=== PATIENT | female | born 1945 | race Caucasian/White ===

== ENCOUNTER 2018-06-07 16:40 | Inpatient (IN) ==
--- NOTE | 2018-06-07 18:11 | Internal Med History&Physical ---
Date of Encounter: 06/07/18 Time of Encounter: 12:00 Internal Medicine - H&P: HPI History of present illness: Ms. Alva is a 72 year old female who was seen in the office earlier today by Orthopedic Surgery. Patient has histoyr of a mucous cyst in right small finger. she had this drained 3 weeks ago and thick clear discharge came from the cyst. Afterwords there was no appearance of infection. She had minor trauma 3 days ago scraping her arm on a cabinet. Two days ago patient states she went to [facility] and she was treated and discharged home on clindamycin. Her primary care saw the patient's wound and referred her to Orthopedic Surgeon Dr. Villar. Patient underwent I&D in office and was sent here as a direct admit as there are concerns for septic arthritis of distal interphalangeal joint and to receive IV antibiotics. Patient admits to severe right hand pain. She denies fevers/chills, nausea, vomiting. No other areas of similar presentation. Past Med Surg Social Fam HX - Past Medical History Medical history: arthritis, CHF, coronary artery disease, CVA, diabetes, fibromyalgia, GERD, hyperlipidemia, hypertension, myocardial infarction, peripheral artery disease, TIA, other Additional medical history: Anemia Psychiatric history: anxiety, depression - Past Surgical History Surgical History: breast surgery, coronary bypass (CABG), orthopedic, other Additional surgical history: Back surgery - Social History Smoking Status: Never smoker Smokeless Tobacco Status: No Alcohol use: none Drug use: none - Family History Father Hx Family Cardiac Disorders: Yes Hx Family Cancer: Yes (Kidney Cancer) Mother Hx Family Cardiac Disorders: Yes Hx Family Cancer: Yes Internal Medicine - H&P: Meds Duloxetine HCl [Cymbalta] 60 mg PO DAILY 11/28/15 [History] Furosemide [Lasix] 40 mg PO DAILY 11/28/15 [History] Metformin HCl [Glucophage] 1,000 mg PO DAILY 11/28/15 [History] Ropinirole HCl [Requip] 2 mg PO DAILY 11/28/15 [History] Cholecalciferol (D-3) [Vitamin D] 5,000 unit PO DAILY 06/23/16 [History] Liraglutide [Victoza 3-Johnny] 1.2 mg SQ DAILY 06/23/16 [History] Potassium Chloride [K-Tab ER] 20 meq PO BID 06/23/16 [History] Atorvastatin Calcium [Lipitor] 20 mg PO DAILY 08/25/17 [History] Amitriptyline [Elavil] 40 mg PO DAILY 09/09/17 [History] Metoprolol [Lopressor] 25 mg PO DAILY 09/09/17 [History] Ondansetron [Zofran] 8 mg PO DIANN PRN 09/09/17 [History] Pen Needle, Diabetic [Pen [place]] 1 each MC TID #4 dis.needle 11/18/17 [Rx] Cyanocobalamin (B-12) [Vitamin B12] 1,000 mcg IM Q3W #6 mls 03/23/18 [Rx] Clindamycin HCl 450 mg PO TID 10 Days #90 capsule 06/06/18 [Rx] Allergy/AdvReac Type Severity Reaction Status Date / Time Penicillins Allergy Hives Verified 04/22/18 13:52 IV CONTRAST AdvReac Hives Uncoded 04/22/18 13:52 All Systems PM: A 10-system review of systems was performed and is negative for pertinent findings except as documented above in the HPI. - Constitutional General appearance: Present: A&O X 3 Exam: n - Head Head exam: Present: atraumatic, normocephalic - Eye Eye exam: Present: PERRL, conjuntiva pink, sclera anicteric Pupils: Present: PERRL - Neck Neck exam general surgery: Present: supple, trachea midline. Absent: lymphadenopathy - Respiratory Respiratory exam: Present: CTAB. Absent: accessory muscle use, rales, rhonchi, wheezes - Cardiovascular Cardiovascular exam: Present: RRR, +S1, +S2. Absent: diastolic murmur, gallop, rubs, systolic murmur - GI/Abdominal GI/Abdominal exam: Present: normal bowel sounds, soft, no peritoneal signs. Absent: distended, tenderness - Extremities Exam Extremities exam: Present: warm, radial pulses palpable and symmetrical. Absent: calf tenderness, cyanotic, pedal edema Additional comments: Right hand exam is limited bypatient. She has severe pain and so limited the touching of the hand. It is in clean dressing. No signs of bruising, discharge, or bleeding. - Neurological Exam Neurological exam: Present: CN II-XII intact, oriented X3, no focal deficits. Absent: pronater drift, facial droop, speech deficit - Skin Skin exam: Present: dry, intact Internal Med - H&P Results - Labs CBC & Chem 7: 06/07/18 18:32 06/07/18 18:32 - Assessment and plan (1) Finger infection Current Visit: Yes Status: Acute Assessment and plan: s/p I&D outpatient office, admitted her for IV antibiotics. 0 SIRS criteria on admission Anticipation that he will need 4-6 abx. ID consult Continue Cefepime. Continue Vanc (2) CHF (congestive heart failure) Current Visit: Yes Status: Acute Assessment and plan: No acute issues, continue home medications once reconsiled Qualifiers: Heart failure type: diastolic Heart failure chronicity: chronic Qualified Code(s): I50.32 - Chronic diastolic (congestive) heart failure (3) Hx of CABG Current Visit: Yes Status: Acute (4) Coronary artery disease Current Visit: Yes Status: Acute Qualifiers: Coronary Disease-Associated Artery/Lesion type: unspecified vessel or lesion type [place] vs. transplanted heart: [place] heart Associated angina: angina presence unspecified Qualified Code(s): I25.10 - Atherosclerotic heart disease of [place] coronary artery without angina pectoris (5) Anemia Current Visit: No Status: Acute Qualifiers: Anemia type: B12 deficiency Vitamin B12 deficiency anemia type: other B12 deficiency Qualified Code(s): D51.8 - Other vitamin B12 deficiency anemias (6) History of CVA (cerebrovascular accident) Current Visit: Yes Status: Acute (7) Diabetes Current Visit: Yes Status: Acute Qualifiers: Diabetes mellitus type: type 2 Diabetes mellitus usp insulin use: un specified usp insulin use status Diabetes mellitus complication status: with kidney complications Diabetes mellitus complication detail: with chronic kidney disease Chronic kidney disease stage: unspecified stage Qualified Code(s): E11.22 - Type 2 diabetes mellitus with diabetic chronic kidney disease (8) History of [place] (myocardial infarction) Current Visit: Yes Status: Acute (9) Peripheral artery disease Current Visit: Yes Status: Acute - Time Spent With Patient Total time spent is greater than 50% in coordination of care (as documented) at patient's floor/unit and/or counseling patient:
[2018-06-07] MEDS ORDERED: Naloxone 0.4 MG/ML INJ IVP PRN (18:13)
[2018-06-07] MEDS ORDERED: Ondansetron 4 MG/2 ML VIAL IVP PRN (18:20)
[2018-06-07] MEDS ORDERED: traMADol 50 MG TABLET PO PRN (18:29)
[2018-06-07] MEDS ORDERED: Acetaminophen 325 MG TABLET PO PRN (18:29)
--- NOTE | 2018-06-07 18:38 | Orthopedic Consult Note ---
Date of Encounter: 06/07/18 Time of Encounter: 18:35 Assessment and Plan (1) Finger infection Current Visit: Yes Status: Acute I did discuss the diagnosis in great detail with the patient. She has septic arthritis of the right small finger distal interphalangeal joint and underwent incision, drainage, irrigation, and debridement of the right small finger distal interphalangeal joint in the office earlier today. My recommendation is IV antibiotics beginning with vancomycin and Zosyn until cultures delineate. I anticipate a consult to the infectious disease team to help assist in antibiotic management. I anticipate that she will need 4-6 weeks of IV antibiotics. I will follow the patient clinically with you. She may require a second look I&D depending on the clinical scenario. I did discuss with the patient the risks of persistent infection, bony destructive changes, the need for multiple debridements, as well as the risk of loss of the digit. History of Present Illness HPI: Ms. Alva is a 72 year old female who was seen in the office earlier today. She has a long history of a mucous cyst of the right small finger. She has had drainage from this in the past the most recent of which was 3 weeks ago when thick clear discharge him from the cyst. At that point there is no concern for redness or infection. She did scrape the dorsal aspect of the right small finger on a metal cabinet 3 days ago. She was seen in the emergency Department and placed on clindamycin. At that point she had redness spreading along the ulnar aspect of the hand. The clindamycin did improve the redness in the hand however she had significant redness at the tip of the digit which has not improved and the pain has significantly worsened. She has no recent or prior trauma. No numbness, tingling, or any other associated signs or symptoms. The pain is sharp and achy in nature and worse with use and movement and better with rest. No other modifying factors. She denies feelings of illness. In the of fice she underwent incision, drainage, irrigation, and debridement of the right small finger after the diagnosis of an infected right small finger mucous cyst and septic arthritis of the distal interphalangeal joint was made. Cultures were obtained. She is now admitted to the hospitalist for IV antibiotics. Past Med Surg Social Fam HX - Past Medical History Medical history: arthritis, CHF, coronary artery disease, CVA, diabetes, fibromyalgia, GERD, hyperlipidemia, hypertension, myocardial infarction, peripheral artery disease, TIA, other Additional medical history: Anemia Psychiatric history: anxiety, depression - Past Surgical History Surgical History: breast surgery, coronary bypass (CABG), orthopedic, other Additional surgical history: Back surgery - Social History Smoking Status: Never smoker Smokeless Tobacco Status: No Alcohol use: none Drug use: none - Family History Father Hx Family Cardiac Disorders: Yes Hx Family Cancer: Yes (Kidney Cancer) Mother Hx Family Cardiac Disorders: Yes Hx Family Cancer: Yes Medications and Allergies Duloxetine HCl [Cymbalta] 60 mg PO DAILY 11/28/15 [History] Furosemide [Lasix] 40 mg PO DAILY 11/28/15 [History] Metformin HCl [Glucophage] 1,000 mg PO DAILY 11/28/15 [History] Ropinirole HCl [Requip] 2 mg PO DAILY 11/28/15 [History] Cholecalciferol (D-3) [Vitamin D] 5,000 unit PO DAILY 06/23/16 [History] Liraglutide [Victoza 3-Johnny] 1.2 mg SQ DAILY 06/23/16 [History] Potassium Chloride [K-Tab ER] 20 meq PO BID 06/23/16 [History] Atorvastatin Calcium [Lipitor] 20 mg PO DAILY 08/25/17 [History] Amitriptyline [Elavil] 40 mg PO DAILY 09/09/17 [History] Metoprolol [Lopressor] 25 mg PO DAILY 09/09/17 [History] Ondansetron [Zofran] 8 mg PO DIANN PRN 09/09/17 [History] Pen Needle, Diabetic [Pen [place]] 1 each MC TID #4 dis.needle 11/18/17 [Rx] Cyanocobalamin (B-12) [Vitamin B12] 1,000 mcg IM Q3W #6 mls 03/23/18 [Rx] Clindamycin HCl 450 mg PO TID 10 Days #90 capsule 06/06/18 [Rx] Allergy/AdvReac Type Severity Reaction Status Date / Time Penicillins Allergy Hives Verified 04/22/18 13:52 IV CONTRAST AdvReac Hives Uncoded 04/22/18 13:52 All Systems Reviewed: Constitutional and musculoskeletal systems were reviewed and are negative unless otherwise stated in history of present illness. Physical Exam - Constitutional Vitals: CONSTITUTIONAL -Vitals reviewed -The patient is well developed, well nourished, well groomed PSYCHIATRIC -Fully alert and oriented -Pleasant mood RIGHT UPPER EXTREMITY Inspection shows that the skin and the soft tissue envelope are intact. There is a mucous cyst along the dorsal aspect of the small finger with significant surrounding redness centered along the distal interphalangeal joint with exquisite tenderness particularly dorsally. Moderate generalized swelling of the small finger and pain with any motion of the digit itself but worse over the distal interphalangeal joint. No streaking up the arm is noted. She can grossly flex and extend the digits with limitation due to pain of the right small finger. She is able across the index and long fingers, extend the thumb, and make an okay sign. The fingertips are all grossly sensate and well- perfused, and the radial artery pulse is 2+. Diagnostic Imaging: I did personally review and interpret x-rays of the right small finger which demonstrates osteopenia but no fractures or significant focal bony resorption of the small finger distal interphalangeal joint region. Results - Labs Labs: All other labs normal. Consult Discharge Plan - Plan Referrals: NONE,PCP [Primary Care Provider] -
[2018-06-07 18:51] LABS: Basophils % 0.7 %; Eosinophils % 0.7 %; Hematocrit 30.2 % (35.3-44.9); Hemoglobin 10.1 g/dL (11.5-15.4); Immature Granulocytes % 0.2 % (0-4); Lymphocytes # 2.7 K/mcL (0.6-4.6); Lymphocytes % 44.9 %; Mean Corpuscular HGB Conc 33.4 g/dL (31.6-35.5); Mean Corpuscular Hemoglobin 34.8 pg (28.0-33.3); Mean Corpuscular Volume 104.1 fL (83.0-100.0); Mean Platelet Volume 10.2 fL (9.4-12.4); Monocytes # 0.5 K/mcL (0.0-1.3); Monocytes % 8.4 %; Neutrophils # 2.7 K/mcL (1.6-8.9); Platelet Count 346 K/mcL (140-400); Red Cell Distribution Width 14.2 % (11.5-14.5); Segmented Neutrophils % 45.1 %
[2018-06-07] MEDS ORDERED: *HR* FentaNYL (PF) 100 MCG/2 ML VIAL IVP STA (18:53)
[2018-06-07] MEDS ORDERED: *HR* Dextrose 50 % in Water (Syg) 50 ML SYRINGE IVP PRN (19:05)
[2018-06-07] MEDS ORDERED: D5% in Water 1,000 ML IVC PRN (19:05)
[2018-06-07] MEDS ORDERED: Dextrose Gel 15 GM/37.5 ML TUBE PO PRN ×2 (19:05)
[2018-06-07] MEDS: OXYCODONE Oral CONC 10 MG/0.5 ML ORAL.SYG SL PRN (19:09)
[2018-06-07 19:19] LABS: BUN/Creatinine Ratio 41 (6-26); Blood Urea Nitrogen 15 mg/dL (8-23); C-Reactive Protein 30 mg/L (Less than 10); Calcium 9.4 mg/dL (8.6-10.3); Carbon Dioxide 26 mEq/L (23-29); Chloride 103 mEq/L (98-107); Glucose 114 mg/dL (70-105); Osmolality,Calculated 290 (280-300); Potassium 3.5 mEq/L (3.5-5.1); Sodium 139 mEq/L (136-145); eGFR For Non-African Americans > 60 (> 60)
[2018-06-07] MEDS ORDERED: Insulin LISPRO 300 UNITS/3 ML VIAL SQ SCH (21:00)
[2018-06-07] MEDS ORDERED: *HR* FentaNYL (PF) 100 MCG/2 ML VIAL IVP PRN (22:43)
[2018-06-08] MEDS: OXYCODONE Oral CONC 10 MG/0.5 ML ORAL.SYG SL PRN ×2 (01:38→09:18)
[2018-06-08 05:38] LABS: BUN/Creatinine Ratio 39 (6-26); Blood Urea Nitrogen 15 mg/dL (8-23); Carbon Dioxide 26 mEq/L (23-29); Chloride 106 mEq/L (98-107); Glucose 156 mg/dL (70-105); Osmolality,Calculated 292 (280-300); Sodium 139 mEq/L (136-145); eGFR For Non-African Americans > 60 (> 60)
[2018-06-08 07:08] LABS: Basophils % 0.7 %; Eosinophils # 0.1 K/mcL (0.0-0.6); Eosinophils % 1.6 %; Hematocrit 28.3 % (35.3-44.9); Hemoglobin 9.5 g/dL (11.5-15.4); Immature Granulocytes % 0.5 % (0-4); Lymphocytes # 1.8 K/mcL (0.6-4.6); Lymphocytes % 42.5 %; Mean Corpuscular HGB Conc 33.6 g/dL (31.6-35.5); Mean Corpuscular Hemoglobin 34.3 pg (28.0-33.3); Mean Corpuscular Volume 102.2 fL (83.0-100.0); Monocytes # 0.4 K/mcL (0.0-1.3); Monocytes % 9.8 %; Neutrophils # 1.9 K/mcL (1.6-8.9); Platelet Count 301 K/mcL (140-400); Red Blood Count 2.77 M/mcL (3.82-4.97); Red Cell Distribution Width 14.2 % (11.5-14.5); Segmented Neutrophils % 44.9 %
--- NOTE | 2018-06-08 07:59 | Orthopedics Progress Note ---
Date of Encounter: 06/08/18 Time of Encounter: 07:55 - Assessment and Plan (1) Finger infection Current Visit: Yes Status: Acute Subjective Interval history: S: Patient is resting in bed comfortably. Expected pain to the right small finger but now involving the digit up to the base of the finger O: Afebrile on the vital signs are stable Inspection shows that the I&D site is clean and dry without drainage The [place] drain is in place Focal erythema to the I&D site Minimal erythema to the small finger and general with mild to moderate swelling overall of the digit Tenderness along the volar base of the small finger which is quite exquisite She is able to grossly flex and extend the small finger with limitation due to pain and swelling The patient can actively flex and extend all digits, extend the thumb, cross the index and long fingers, make an okay sign, and oppose the thumb. The fingertips are all grossly sensate and well-perfused, and the radial artery pulse is 2+. A: Right small finger infection with distal interphalangeal joint septic arthritis P: At this point my plan is for formal operative incision, drainage, irrigation and debridement Due to the tenderness and swelling at the volar base of the digit I recommend exploration of this region to rule out flexor tenosynovitis Continue IV antibiotic per the primary team; I will place a consult to ID regarding the right small finger; They did order vancomycin which she received last night and cefepime however the cefepime was not given. I did order to the pharmacy to begin that now. We will also update her tetanus as she did not get this in the emergency department. Objective Vital signs: Vital Signs Temp Pulse Resp BP Pulse Ox 06/08/18 04:13 98.2 F 73 17 118/70 96 06/07/18 23:30 98.7 F 89 17 130/72 97 06/07/18 19:54 96 06/07/18 19:52 98.5 F 81 17 158/67 96 Intake and Output 06/07/18 06/07/18 06/08/18 15:59 23:59 07:59 Intake Total 550 / 550 Balance 550 / 550 Intake: IV Fluids 250 / 250 Vancocin 1,000 MG In 0.9 % 250 / 250 Sodium Chloride 250 ML @ 167 mls/hr IVPB Q12H [facility] Rx#: [id number] Oral 300 / 300 Other: Stool Size Moderate Stool Consistency formed Stool Color Brown # Voids 1 1 # Bowel Movements 1 Weight 68.353 kg Blood Glucose* 134 - Labs CBC & BMP: 06/08/18 06:33 06/08/18 04:31 Labs: Abnormal lab results RBC 2.77 M/mcL (3.82-4.97) L 06/08/18 06:33 Hgb 9.5 g/dL (11.5-15.4) L 06/08/18 06:33 Hct 28.3 % (35.3-44.9) L 06/08/18 06:33 MCV 102.2 fL (83.0-100.0) H 06/08/18 06:33 MCH 34.3 pg (28.0-33.3) H 06/08/18 06:33 ESR 66 mm/hr (0-15) H 06/07/18 18:32 Creatinine 0.38 mg/dL (0.60-1.20) L 06/08/18 04:31 BUN/Creatinine Ratio 39 (6-26) H 06/08/18 04:31 Glucose 156 mg/dL (70-105) H 06/08/18 04:31 C-Reactive Protein 30 mg/L (Less than 10) H 06/07/18 18:32 Consult Discharge Plan - Plan Referrals: NONE,PCP [Primary Care Provider] -
[2018-06-08] MEDS ORDERED: Td (TENIVAC) Vaccine 0.5 ML VIAL IM ONE (08:07)
[2018-06-08] MEDS: Cefepime HCl 2,000 MG in Water for inj. (sterile) 20 ML 20 ML IVP SCH ×2 (08:21→16:55)
[2018-06-08] MEDS ORDERED: NON-FORMULARY MEDICATION 1 EACH EACH (Ondansetron [Zofran] 8 MG) PO PRN (08:29)
[2018-06-08] MEDS: Insulin LISPRO 300 UNITS/3 ML VIAL SQ SCH ×4 (08:43→21:34)
[2018-06-08] MEDS ORDERED: Metoprolol XL (24 HR) Succ 25 MG TAB.ER.24H PO SCH (09:00)
[2018-06-08] MEDS ORDERED: Cholecalciferol (D-3) 1,000 UNIT TABLET PO SCH (09:00)
[2018-06-08] MEDS ORDERED: Furosemide 40 MG TABLET PO SCH (09:00)
--- NOTE | 2018-06-08 09:06 | Internal Med Progress Note ---
Hospitalist Progress Note - Encounter Date of Encounter: 06/08/18 Time of Encounter: 09:03 - Subjective Interval History: No acute events. Patient had 10/10 hand pain yesterday for infection of finger, s/p I&D yesterday by Ortho. Her pain improves with pain medication. She denies fevers/chills, n/v. - Exam Vitals: Temp Pulse Resp BP Pulse Ox 97.8 F 80 16 172/78 98 06/08/18 08:12 06/08/18 08:12 06/08/18 08:12 06/08/18 08:12 06/08/18 08:12 Exam: Gen: NAD, sitting up in chair. CVS: RRR Lungs: CTAB abd: soft, NT/ND Ext: no extremity edema. Limited exam due to recent bandage change that is extremely tender right 5th finger. Erythema appreciated in fingers, no gross drainage or bleeding. Sensation in tact. n - Assessment and Plan (1) Finger infection Current Visit: Yes Status: Acute Assessment and Plan: s/p I&D outpatient office 06/07/18 0 SIRS criteria on admission Anticipation that he will need 4-6 abx. ID consulted, recommendations appreciated Continue Cefepime. Continue Vanc, MRSA screen pending. Pain medication appears effective, will continue current regimen. Plan for another I&D possibly today. Ortho following. (2) CHF (congestive heart failure) Current Visit: Yes Status: Acute Assessment and Plan: No acute issues, continue home medications (3) Hx of CABG Current Visit: Yes Status: Acute (4) Coronary artery disease Current Visit: Yes Status: Acute Assessment and Plan: Continue jeannie emedications. (5) Anemia Current Visit: No Status: Acute (6) History of CVA (cerebrovascular accident) Current Visit: Yes Status: Acute (7) Diabetes Current Visit: Yes Status: Acute Assessment and Plan: ISS, diabetic diet when she is able to eat. NPO for now in case needing procedure. (8) History of [place] (myocardial infarction) Current Visit: Yes Status: Acute (9) Peripheral artery disease Current Visit: Yes Status: Acute DVT Prophylaxis: Heparin SQ - Time Spent with Patient Total time spent is greater than 50% in coordination of care (as documented) at patient's floor/unit and/or counseling patient: Internal Medicine: Result - Labs CBC & Chem 7: 06/08/18 06:33 06/08/18 04:31 Labs: Short CBC 06/07/18 06/08/18 Range/Units 18:32 06:33 WBC 6.0 4.3 (4.3-11.1) K/mcL Hgb 10.1 L 9.5 L (11.5-15.4) g/dL Hct 30.2 L 28.3 L (35.3-44.9) % Plt Count 346 301 (140-400) K/mcL Neutrophils # 2.7 1.9 (1.6-8.9) K/mcL BMP 06/07/18 06/08/18 18:32 04:31 Sodium 139 139 Potassium 3.5 4.0 Chloride 103 106 Carbon Dioxide 26 26 BUN 15 15 Creatinine 0.37 L 0.38 L Glucose 114 H 156 H Calcium 9.4 9.0 Consult Discharge Plan - Plan Referrals: NONE,PCP [Primary Care Provider] - ___ (2) CHF (congestive heart failure) Qualifiers: Heart failure type: diastolic Heart failure chronicity: chronic Qualified Code(s): I50.32 - Chronic diastolic (congestive) heart failure (4) Coronary artery disease Qualifiers: Coronary Disease-Associated Artery/Lesion type: unspecified vessel or lesion type [place] vs. transplanted heart: [place] heart Associated angina: angina presence unspecified Qualified Code(s): I25.10 - Atherosclerotic heart disease of [place] coronary artery without angina pectoris (5) Anemia Qualifiers: Anemia type: B12 deficiency Vitamin B12 deficiency anemia type: other B12 deficiency Qualified Code(s): D51.8 - Other vitamin B12 deficiency anemias (7) Diabetes Qualifiers: Diabetes mellitus type: type 2 Diabetes mellitus alf insulin use: unspecified alf insulin use status Diabetes mellitus complication status: with kidney complications Diabetes mellitus complication detail: with chronic kidney disease Chronic kidney disease stage: unspecified stage Qualified Code(s): E11.22 - Type 2 diabetes mellitus with diabetic chronic kidney disease
--- NOTE | 2018-06-08 11:10 | Infectious Disease Consult ---
Date of Encounter: 06/08/18 Time of Encounter: 11:07 Assessment and Plan (1) Finger infection Status: Acute Assessment and plan: Location: Right 5th finger. Causative organism: Unclear. Likely secondary to recent trauma. Failed outpatient oral antibiotics. X-ray of the right hand negative for osteomyelitis. ESR 66, CRP 30. No SIRS criteria. Blood cultures drawn 06/07/18 are pending x 2 sets. Status post bedside I & D in the office 06/07/[address] Villar. Cultures are pending, but gram stain positive for GNR and GPC. Ortho consulted and following. Planning for formal I & D later today. Concern for septic arthritis and possible flexor tenosynovitis. Currently on Vanc and Cefepime. Recommendations: - Await cultures to finalize. - Get repeat cultures intra-op if possible. - Wound care and activity restrictions per the ortho team. - Continue Vancomycin IV. Pharmacy to dose. Goal trough ~15. - Continue Cefepime 2 grams, but decrease frequency to Q12H. - Duration of treatment depends on the clinical picture. - Monitor renal function and for drug toxicity and dose-adjust antibiotics. - Strict glucose control. (2) Cellulitis Status: Acute Assessment and plan: Location: Right hand, 5th digit. Causative organism: Unclear. Failed outpatient oral antibiotics. Ortho consulted. Antibiotic recommendations as above. Qualifiers: Site of cellulitis: extremity Site of cellulitis of extremity: finger Laterality: right Qualified Code(s): L03.011 - Cellulitis of right finger (3) CHF (congestive heart failure) Status: Chronic Qualifiers: Heart failure type: diastolic Heart failure chronicity: chronic Qualified Code(s): I50.32 - Chronic diastolic (congestive) heart failure (4) Coronary artery disease Status: Chronic Qualifiers: Coronary Disease-Associated Artery/Lesion type: unspecified vessel or lesion type [place] vs. transplanted heart: [place] heart Associated angina: angina presence unspecified Qualified Code(s): I25.10 - Atherosclerotic heart disease of [place] coronary artery without angina pectoris (5) Diabetes Status: Chronic Assessment and plan: Strict glucose control per the primary team. Qualifiers: Diabetes mellitus type: type 2 Diabetes mellitus penitentiary insulin use: unspecified penitentiary insulin use status Diabetes mellitus complication status: with kidney complications Diabetes mellitus complication detail: with chronic kidney disease Chronic kidney disease stage: unspecified stage Qualified Code(s): E11.22 - Type 2 diabetes mellitus with diabetic chronic kidney disease (6) Peripheral artery disease Status: Acute Infectious Disease HPI - Data of Consult Patient: new to practice Consult date: 06/08/18 Requesting Physician: Venkatesh Reddy MD Primary Care Provider: PCP NONE - Consult Narrative Reason for consult: Right hand infection History of present illness: Ms. Alva is a 72 year old female with a past medical history of CHF, CAD, CVA, diabetes, hyperlipidemia, hypertension, PAD, and anemia. The patient was admitted to the hospital 01/17 for right hand infection. We are consult 06/08/18 for antibiotic recommendations for right hand infection. Briefly, the patient is a 72-year-old female with past medical history as stated above. The patient has a chronic ongoing mucous cyst to the right small finger which was recently drained about 3 weeks ago. She tolerated the procedure well and was doing fine until she scraped her finger on a metal cabinet. She noticed increased redness and swelling since she placed some clindamycin gel on it, but had continued worsening of her symptoms. She presented to the emergency department and placed on an oral course of clindamycin. She again continued to have worsening of her symptoms that she was evaluated by her PCP who referred her to Dr. Stevenson. He performed an incision and debridement in the office and there was concern for possible septic arthritis so he advised her to come to the hospital for direct admission and IV antibiotics. She did have a right hand x- ray that was negative for acute abnormality. Cultures from the bedside I&D are still pending, but the Gram stain does show a few gram-positive cocci and few gram-negative rods. Upon arrival, the patient was afebrile and hemodynamically stable. Laboratory studies revealed a normal white blood cell count. ESR is elevated at 66 with a CRP of 30. Her lactic acid and renal function were normal. On admission, the patient was started on IV Vanco and cefepime. Per the Ortho note, they are planning on taking her to the OR later today. We have been asked to evaluate and make further recommendations. During my exam today, the patient endorses a history as stated above. She denies any fevers or chills or rigors. Denies any headache or neck pain. She denies chest pain, shortness of breath, or cough. She denies any nausea, vomiting, diarrhea, constipation. She reports chronic back pain that is at baseline. She denies any abdominal pain or urinary complaints. She denies any oral thrush or skin lesions. She does tell me that she scraped the affected finger and 4 and took off the top of a chronic mucous cyst to the right small finger. She states she placed some Clindagel on it that night and went to bed and woke up at 4:00 in the morning with severe finger pain. The finger was noted to be red and hot and swollen so she presented to the ER for evaluation. The patient was at home with her . She does not work outside the home. She denies any tobacco, alcohol, or illicit drug use. She denies any chronic infectious diseases, but does report that she seems more prone to infections and normal. She follows with hematology/oncology for chronic anemia that is being worked up. She also follows with [facility] for fibromyalgia and chronic osteoarthritis. She does follow with [facility] for her chronic back pain. CC: Venkatesh Reddy MD Past Med Surg Social Fam HX - Past Medical History Attestation: Yes The following information was validated with the patient. Source: patient, old records reviewed, nursing notes reviewed Medical history: arthritis, CHF, coronary artery disease, CVA, diabetes, fibromyalgia, GERD, hyperlipidemia, hypertension, myocardial infarction, peripheral artery disease, TIA, other Additional medical history: Anemia Psychiatric history: anxiety, depression - Past Surgical History Surgical History: breast surgery, coronary bypass (CABG), orthopedic, other Additional surgical history: Back surgery - Social History Smoking Status: Never smoker Smokeless Tobacco Status: No Alcohol use: none Drug use: none Occupational status: unemployed Current living situation: Home, With Family Activity Level: Independent ambulation Recent Out of Country Travel Within the Last 8 Weeks: No Exposure or Possible Exposure to Illness During Travel: No - Family History Father Hx Family Cardiac Disorders: Yes Hx Family Cancer: Yes (Kidney Cancer) Mother Hx Family Cardiac Disorders: Yes Hx Family Cancer: Yes Infectious Disease-CN:Meds RX: Duloxetine HCl [Cymbalta] 60 mg PO DAILY 11/28/15 [History] RX: Furosemide [Lasix] 40 mg PO DAILY 11/28/15 [History] RX: Metformin HCl [Glucophage] 1,000 mg PO BID 11/28/15 [History] RX: Ropinirole HCl [Requip] 2 mg PO HS 11/28/15 [History] Cholecalciferol (D-3) [Vitamin D] 5,000 unit PO DAILY 06/23/16 [History] Ondansetron [Zofran] 8 mg PO DAILY 09/09/17 [History] RX: Cyanocobalamin (B-12) [Vitamin B12] 1,000 mcg IM Q3W #6 mls 03/23/18 [Rx] RX: Clindamycin HCl 450 mg PO TID 10 Days #90 capsule 06/06/18 [Rx] Atorvastatin Calcium [Lipitor] 20 mg PO QPM 06/08/18 [History] Denosumab [Prolia (For Outpatient Infusion)] 60 mg SQ [id number] 06/08/18 [History] Diclofenac Sodium [Voltaren] 100 gm TP DAILY PRN 06/08/18 [History] Metoprolol Succinate 50 mg PO DAILY 06/08/18 [History] Tramadol HCl [Ultram] 50 mg PO Q6H PRN 06/08/18 [History] Allergy/AdvReac Type Severity Reaction Status Date / Time Penicillins Allergy Hives Verified 06/08/18 13:22 IV CONTRAST AdvReac Hives Uncoded 06/08/18 13:22 All systems: reviewed and no additional remarkable complaints except as stated Exam - Constitutional Vitals: Temp Pulse Resp BP Pulse Ox 97.8 F 80 16 172/78 98 06/08/18 08:12 06/08/18 08:12 06/08/18 08:12 06/08/18 08:12 06/08/18 08:12 General appearance: cooperative, no acute distress, obese - Head Head exam: Present: atraumatic, normal inspection, normocephalic - Eye Eye exam: Present: EOMI, normal appearance, PERRL Pupils: Present: normal accommodation - ENT ENT exam: Present: mucous membranes moist - Neck Neck exam: Present: normal inspection - Respiratory Respiratory exam: Present: CTAB. Absent: rales, respiratory distress, rhonchi, wheezes - Cardiovascular Cardiovascular exam: Present: RRR, +S1, +S2 - GI/Abdominal GI/Abdominal exam: Present: distended (obese), normal bowel sounds, soft. Absent: tenderness - Extremities Exam Extremities exam: Absent: normal inspection (Right small finger with erythema, warmth, and tenderness. Previous I & D site noted with packing and sutures intact. Scant brown drainage noted on the old dressing. ) - Neurological Exam Neurological exam: Present: alert, oriented X3, no focal deficits - Psychiatric Psychiatric exam: Present: normal affect, normal mood - Skin Skin exam: Present: dry, intact, normal color, warm Infectious Disease CN: Results - Labs CBC & Chem 7: 06/08/18 06:33 06/08/18 04:31 Cultures: Cultures 06/07/18 19:27 Blood Culture - Preliminary Peripheral Venipuncture Culture is incubating and being continuously monitored for growth. Final report to follow. 06/07/18 19:27 Blood Culture - Preliminary Peripheral Venipuncture Culture is incubating and being continuously monitored for growth. Final report to follow. Serology: Serology 06/08/18 06/08/18 06/08/18 Range/Units 06:33 04:31 04:31 WBC 4.3 (4.3-11.1) K/mcL RBC 2.77 L (3.82-4.97) M/mcL Hgb 9.5 L (11.5-15.4) g/dL Hct 28.3 L (35.3-44.9) % MCV 102.2 H (83.0-100.0) fL MCH 34.3 H (28.0-33.3) pg MCHC 33.6 (31.6-35.5) g/dL RDW 14.2 (11.5-14.5) % Plt Count 301 (140-400) K/mcL MPV 10.0 (9.4-12.4) fL Immature Gran % 0.5 (0-4) % Seg Neutrophils % 44.9 % Lymphocytes % 42.5 % Monocytes % 9.8 % Eosinophils % 1.6 % Basophils % 0.7 % Neutrophils # 1.9 (1.6-8.9) K/mcL Lymphocytes # 1.8 (0.6-4.6) K/mcL Monocytes # 0.4 (0.0-1.3) K/mcL Eosinophils # 0.1 (0.0-0.6) K/mcL Basophils # 0.0 (0.0-0.2) K/mcL ESR (0-15) mm/hr Sodium 139 (136-145) mEq/L Potassium 4.0 (3.5-5.1) mEq/L Chloride 106 (98-107) mEq/L Carbon Dioxide 26 (23-29) mEq/L BUN 15 (8-23) mg/dL Creatinine 0.38 L (0.60-1.20) mg/dL Est GFR ( Amer) > 60 (> 60) Est GFR (Non-Af Amer) > 60 (> 60) BUN/Creatinine Ratio 39 H (6-26) Glucose 156 H (70-105) mg/dL Calculated Osmolality 292 (280-300) Lactic Acid (0.5-2.2) mmol/L Calcium 9.0 (8.6-10.3) mg/dL C-Reactive Protein (Less than 10) mg/L Nasal Screen MRSA (PCR) (Negative) Specimen Rejected Clotted 06/08/18 06/07/18 06/07/18 Range/Units 04:22 19:27 18:32 WBC (4.3-11.1) K/mcL RBC (3.82-4.97) M/mcL Hgb (11.5-15.4) g/dL Hct (35.3-44.9) % MCV (83.0-100.0) fL MCH (28.0-33.3) pg MCHC (31.6-35.5) g/dL RDW (11.5-14.5) % Plt Count (140-400) K/mcL MPV (9.4-12.4) fL Immature Gran % (0-4) % Seg Neutrophils % % Lymphocytes % % Monocytes % % Eosinophils % % Basophils % % Neutrophils # (1.6-8.9) K/mcL Lymphocytes # (0.6-4.6) K/mcL Monocytes # (0.0-1.3) K/mcL Eosinophils # (0.0-0.6) K/mcL Basophils # (0.0-0.2) K/mcL ESR 66 H (0-15) mm/hr Sodium (136-145) mEq/L Potassium (3.5-5.1) mEq/L Chloride (98-107) mEq/L Carbon Dioxide (23-29) mEq/L BUN (8-23) mg/dL Creatinine (0.60-1.20) mg/dL Est GFR ( Amer) (> 60) Est GFR (Non-Af Amer) (> 60) BUN/Creatinine Ratio (6-26) Glucose (70-105) mg/dL Calculated Osmolality (280-300) Lactic Acid 1.4 (0.5-2.2) mmol/L Calcium (8.6-10.3) mg/dL C-Reactive Protein (Less than 10) mg/L Nasal Screen MRSA (PCR) Negative (Negative) Specimen Rejected 06/07/18 06/07/18 Range/Units 18:32 18:32 WBC 6.0 (4.3-11.1) K/mcL RBC 2.90 L (3.82-4.97) M/mcL Hgb 10.1 L (11.5-15.4) g/dL Hct 30.2 L (35.3-44.9) % MCV 104.1 H (83.0-100.0) fL MCH 34.8 H (28.0-33.3) pg MCHC 33.4 (31.6-35.5) g/dL RDW 14.2 (11.5-14.5) % Plt Count 346 (140-400) K/mcL MPV 10.2 (9.4-12.4) fL Immature Gran % 0.2 (0-4) % Seg Neutrophils % 45.1 % Lymphocytes % 44.9 % Monocytes % 8.4 % Eosinophils % 0.7 % Basophils % 0.7 % Neutrophils # 2.7 (1.6-8.9) K/mcL Lymphocytes # 2.7 (0.6-4.6) K/mcL Monocytes # 0.5 (0.0-1.3) K/mcL Eosinophils # 0.0 (0.0-0.6) K/mcL Basophils # 0.0 (0.0-0.2) K/mcL ESR (0-15) mm/hr Sodium 139 (136-145) mEq/L Potassium 3.5 (3.5-5.1) mEq/L Chloride 103 (98-107) mEq/L Carbon Dioxide 26 (23-29) mEq/L BUN 15 (8-23) mg/dL Creatinine 0.37 L (0.60-1.20) mg/dL Est GFR ( Amer) > 60 (> 60) Est GFR (Non-Af Amer) > 60 (> 60) BUN/Creatinine Ratio 41 H (6-26) Glucose 114 H (70-105) mg/dL Calculated Osmolality 290 (280-300) Lactic Acid (0.5-2.2) mmol/L Calcium 9.4 (8.6-10.3) mg/dL C-Reactive Protein 30 H (Less than 10) mg/L Nasal Screen MRSA (PCR) (Negative) Specimen Rejected Consult Discharge Plan - Plan Referrals: NONE,PCP [Primary Care Provider] - - Attending Attestation I examined this patient and my medical decision-making was reviewed with the Resident Physician. I agree with the documented findings, disposition and treatment plan as described except to the extent set forth below. This is an addendum to original report dictated by Estella Leon CNP. Please refer to Estella's note for full detail. Patient is a 72-year-old woman with past medical history mentioned below was admitted to [facility] for right hand infection and we are consulted for antibiotic recommendations. The patient has a chronic ongoing mucous cyst to the right small finger which was recently drained about 3 weeks ago. She tolerated the procedure well and was doing fine until she scraped her finger on a metal cabinet. She noticed increased redness and swelling since she placed some clindamycin gel on it, but had continued worsening of her symptoms. She presented to the emergency department and placed on an oral course of clindamycin. She again continued to have worsening of her symptoms that she was evaluated by her PCP who referred her to Dr. Stevenson. He performed an incision and debridement in the office and there was concern for possible septic arthritis so he advised her to come to the hospital for direct admission and IV antibiotics. She did have a right hand x-ray that was negative for acute abnorm ality. Cultures from the bedside I&D are still pending, but the Gram stain does show a few gram-positive cocci and few gram-negative rods. Upon arrival, the patient was afebrile and hemodynamically stable. Laboratory studies revealed a normal white blood cell count. ESR is elevated at 66 with a CRP of 30. Her lactic acid and renal function were normal. On admission, the patient was started on IV Vanco and cefepime. Per the Ortho note, they are planning on taking her to the OR later today. We have been asked to evaluate and make further recommendations. During my exam today, the patient endorses a history as stated above. She denies any fevers or chills or rigors. Denies any headache or neck pain. She denies chest pain, shortness of breath, or cough. She denies any nausea, vomit ing, diarrhea, constipation. She reports chronic back pain that is at baseline. She denies any abdominal pain or urinary complaints. She denies any oral thrush or skin lesions. She does tell me that she scraped the affected finger and 4 and took off the top of a chronic mucous cyst to the right small finger. She states she placed some Clindagel on it that night and went to bed and woke up at 4:00 in the morning with severe finger pain. The finger was noted to be red and hot and swollen so she presented to the ER for evaluation. Patient is postop right now. She is awake and alert but still a little groggy. is at bedside. Assessment and plan: Right fifth finger infection -causative organism not clear. Likely secondary to recent trauma. Failed outpatient antibiotics regimen. Await intraoperative cultures We will discuss with Dr. Stevenson Duration of treatment depends on the clinical picture Continue vancomycin and cefepime dose adjust creatinine clearance Goal vancomycin trough 10-15 Monitor labs and for drug toxicity and monitor kidney function closely.
--- NOTE | 2018-06-08 14:29 | Anesthesia Evaluation PreOp ---
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: CVA, TIA, Other (Anxiety/Depression) Other Medical History: Diabetes Type II, GERD, Other (fibromyalgia) Anesthesia History: No Prior Anesthetic Complications, Past Anesthesia (breast surgery, coronary bypass (CABG), orthopedic, Back surgery) : No Alcohol Use: none Drug use: none Medications and Allergies Duloxetine HCl [Cymbalta] 60 mg PO DAILY 11/28/15 [History] Furosemide [Lasix] 40 mg PO DAILY 11/28/15 [History] Metformin HCl [Glucophage] 1,000 mg PO BID 11/28/15 [History] Ropinirole HCl [Requip] 2 mg PO HS 11/28/15 [History] Cholecalciferol (D-3) [Vitamin D] 5,000 unit PO DAILY 06/23/16 [History] Ondansetron [Zofran] 8 mg PO DAILY 09/09/17 [History] Cyanocobalamin (B-12) [Vitamin B12] 1,000 mcg IM Q3W #6 mls 03/23/18 [Rx] Clindamycin HCl 450 mg PO TID 10 Days #90 capsule 06/06/18 [Rx] Atorvastatin Calcium [Lipitor] 20 mg PO QPM 06/08/18 [History] Denosumab [Prolia (For Outpatient Infusion)] 60 mg SQ [id number] 06/08/18 [History] Diclofenac Sodium [Voltaren] 100 gm TP DAILY PRN 06/08/18 [History] Metoprolol Succinate 50 mg PO DAILY 06/08/18 [History] Tramadol HCl [Ultram] 50 mg PO Q6H PRN 06/08/18 [History] Allergy/AdvReac Type Severity Reaction Status Date / Time Penicillins Allergy Hives Verified 06/08/18 13:22 IV CONTRAST AdvReac Hives Uncoded 06/08/18 13:22 - Meds/Allergy Pre-op Review Medications Reviewed: Yes Allergies Reviewed: Yes Beta Blockers on Current Med List: Yes If Beta Blockers taken, Date/Time (Last Dose taken): 06/08/2018 @ 08:21 Anesthesia Results - Labs 06/08/18 06:33 06/08/18 04:31 Echocardiogram Name: Lesli Alva Date of Study: 03/19/2017 Impressions: LVEF 60%. Normal left ventricular size and systolic function. Normal right ventricular size and function. Mild-moderate mitral regurgitation. Possible mild prolapsing of the anterior mitral valve leaflet. Mild-moderate tricuspid regurgitation. No pulmonary hypertension. Stress 03/19/17 EF-70% No ischemia - Imaging EKG: report reviewed (SINUS RHYTHM WITH SINUS ARRHYTHMIA) Anesthesia Exam Vital Signs/O2 Sat, Most Current Temp Pulse Resp BP Pulse Ox 98.0 F 80 19 138/56 97 06/08/18 11:35 06/08/18 11:35 06/08/18 11:35 06/08/18 11:35 06/08/18 11:35 NPO (# of Hours): > 8 hrs Pain Scale: 0 Pain Scale Used: Numeric (1 - 10) - HEENT Pupil (Motor): Pupils equal, EOMI Mallampati: IV Teeth: Normal Oral Opening: Greater than 3 - SOCKET WELDER HELPER LOC: Oriented SOCKET WELDER HELPER Motor: Normal RUE, Normal LUE, Normal RLE, Normal LLE, Normal Face SOCKET WELDER HELPER Sensory: Normal: RUE, LUE, RLE, LLE, Face - Cardiac Rhythm: Regular Murmur: None JVD: No Carotid Bruit: No - Pulmonary Breath Sounds: bilateral Clear Respiratory Effort: Symmetrical Anesthesia Assess/Plan ASA Score: 3 Level of consciousness: Cooperative Anesthetic Plan: General Autologous Blood: Yes Monitoring Plan: Standard Monitors Recovery Plan: PACU
[2018-06-08] MEDS ORDERED: Bupivacaine/EPI 1:200k 0.5%PF 10 ML VIAL ONE (15:01)
[2018-06-08] MEDS ORDERED: *HR* OxyCODONE Immed Rel 5 MG TABLET PO PRN ×2 (15:40→19:25)
[2018-06-08] MEDS ORDERED: *HR* Morphine 2 MG/ML SYRINGE IVP PRN ×2 (15:40→19:25)
[2018-06-08] MEDS ORDERED: Lidocaine -MPF 2% 2 ML VIAL ONE ×2 (16:00)
[2018-06-08] MEDS ORDERED: *HR* Propofol 200 MG/20 ML VIAL IVP ONE (16:00)
[2018-06-08] MEDS ORDERED: *HR* FentaNYL (PF) 100 MCG/2 ML VIAL ONE (16:00)
[2018-06-08] MEDS ORDERED: Ondansetron 4 MG/2 ML VIAL ONE (16:00)
--- NOTE | 2018-06-08 16:12 | Orthopedic Operative Note ---
Date of procedure: 06/08/18 Procedure: OPERATIVE REPORT SURGEON: Roque Villar MD PREOPERATIVE DIAGNOSIS: Right small finger infection, septic arthritis of the distal interphalangeal joint POSTOPERATIVE DIAGNOSIS: Same PROCEDURE: Incision, drainage, irrigation, and debridement of the right small finger ANESTHESIA: Gen. anesthesia SPECIMENS: Aerobic and anaerobic culture swabs PREOPERATIVE NOTE The surgical plan was reviewed with the patient. The risks, benefits, alternatives, and potential complications of this procedure were discussed with the patient including injury to veins, arteries, nerves, tendons, ligaments, and bone. Also discussed were the risks of infection, bleeding, pain, blood clots, the possible need for a blood transfusion, the possible need for further procedures, heart attack, stroke, and . Additional risks include persistent symptoms despite surgery. All of this was explained in simple terms, and the patient verbalized understanding and wished to proceed. Consent was given to proceed with surgery. PROCEDURE: The patient was seen in the preoperative holding area where the identify and the consent were confirmed. The right small finger was marked. Final questions were answered. The patient was brought back to the operating room and placed supine on the operating room table. A huddle was performed with the patient and all vital surgical team members confirming patient identity, the correct procedure, and the correct operative site. Gen. anesthesia was administered. The operative extremity was prepped and draped in the usual sterile fashion. A surgical time out was performed immediately preceding the incision with all personnel in the operating room to confirm patient identity, the correct operative site and extremity, correct radiographic studies, availability of appropriate surgical equipment, and agreement on the planned procedure. The tourniquet was inflated without exsanguination. The incision from the office I&D was reopened and the full-thickness flaps were elevated. The extensor tendon was identified. There is no new purulence. The tendon was reflected and the joint identified. No new purulence in the joint. The wound was copiously irrigated. It was then closed loosely over a Mohsen drain using 2 interrupted nylon stitches. Due to concern for possible flexor tenosynovitis a small Colin incision was made over the volar base of the finger. Dissection proceeded carefully through the skin and subcutaneous tissue taking care to protect the neurovascular bundles. The flexor tendon sheath was identified and a small window between A2 and A4 was opened and there is no purulent material, or any concern for flexor tenosynovitis. The wound was copiously irrigated and a single stitch was used to close the wound over a Mohsen drain. The instrument, sponge, and needle counts were correct after wound closure. POST OPERATIVE PLAN: Continue IV antibiotics per the infectious disease team at this point. Daily local wound care. Was there an grooming assistant present: No Estimated blood loss (cc): 1
[2018-06-08] MEDS ORDERED: *HR* Heparin 5,000 UNIT/ML VIAL SQ SCH (18:00)
[2018-06-08] MEDS ORDERED: Ondansetron 4 MG/2 ML VIAL IVP PRN (19:25)
[2018-06-08] MEDS ORDERED: *HR* Dextrose 50 % in Water (Syg) 50 ML SYRINGE IVP PRN (19:25)
[2018-06-08] MEDS ORDERED: D5% in Water 1,000 ML IVC PRN (19:25)
[2018-06-08] MEDS ORDERED: *HR* FentaNYL (PF) 100 MCG/2 ML VIAL IVP PRN (19:25)
[2018-06-08] MEDS ORDERED: Naloxone 0.4 MG/ML INJ IVP PRN (19:25)
[2018-06-08] MEDS ORDERED: Dextrose Gel 15 GM/37.5 ML TUBE PO PRN ×2 (19:25)
[2018-06-08] MEDS ORDERED: traMADol 50 MG TABLET PO PRN (19:25)
--- NOTE | 2018-06-08 20:48 | Anesthesia Evaluation Post Op ---
Date of Encounter: 06/08/18 Time of Encounter: 16:33 - Discharge PostOp Status: Transfer Patient to floor (Patient's vital signs have been reviewed. Patient is stable postoperatively and has adequately recovered from anesthesia. Patient is determined to have stable airway patency and respiratory function including respiratory rate and oxygen saturation. Patient has a stable heart rate, blood pressure and adequate hydration. Patients mental status is acceptable. Patients temperature is appropriate. Pain and nausea are adequately controlled.)
[2018-06-08] MEDS ORDERED: rOPINIRole 1 MG TABLET PO SCH (21:00)
[2018-06-08] MEDS: rOPINIRole 1 MG TABLET PO SCH (21:26)
[2018-06-08] MEDS ORDERED: 0.9 % Sodium Chloride 250 ML ONE (21:38)
[2018-06-09] MEDS: Cefepime HCl 2,000 MG in Water for inj. (sterile) 20 ML 20 ML IVP SCH ×4 (02:08→23:15)
[2018-06-09] MEDS: OXYCODONE Oral CONC 10 MG/0.5 ML ORAL.SYG SL PRN ×4 (02:09→23:16)
[2018-06-09 03:26] LABS: Basophils # 0.1 K/mcL (0.0-0.2); Basophils % 1.2 %; Eosinophils # 0.1 K/mcL (0.0-0.6); Eosinophils % 1.7 %; Hematocrit 28.2 % (35.3-44.9); Hemoglobin 9.6 g/dL (11.5-15.4); Immature Granulocytes % 0.2 % (0-4); Lymphocytes # 1.7 K/mcL (0.6-4.6); Lymphocytes % 40.2 %; Mean Corpuscular Volume 102.9 fL (83.0-100.0); Monocytes # 0.4 K/mcL (0.0-1.3); Monocytes % 10.5 %; Neutrophils # 1.9 K/mcL (1.6-8.9); Platelet Count 327 K/mcL (140-400); Red Blood Count 2.74 M/mcL (3.82-4.97); Red Cell Distribution Width 14.3 % (11.5-14.5); Segmented Neutrophils % 46.2 %
[2018-06-09] MEDS: Acetaminophen 325 MG TABLET PO PRN ×2 (04:25→13:27)
[2018-06-09] MEDS: *HR* Heparin 5,000 UNIT/ML VIAL SQ SCH ×2 (06:10→16:36)
[2018-06-09] MEDS ORDERED: Lidocaine -MPF 1% 5 ML AMPUL INFILT ONE ×2 (07:47→10:34)
[2018-06-09] MEDS ORDERED: Aminoglycoside Consult 1 EACH MC ONE (08:07)
--- NOTE | 2018-06-09 08:23 | Orthopedics Progress Note ---
Date of Encounter: 06/09/18 Time of Encounter: 08:21 - Assessment and Plan (1) Finger infection Current Visit: Yes Status: Acute Subjective Interval history: S: Patient is resting in bed comfortably. Expected pain to the right small finger O: Afebrile on the vital signs are stable Improvement in the redness and swelling to the right small finger [place] drains were pulled from both sites. Minimal drainage from the wounds. No purulence. Tenderness is expected to the surgery sites. She is able to grossly flex and extend the small finger with limitation due to pain and swelling The patient can actively flex and extend all digits, extend the thumb, cross the index and long fingers, make an okay sign, and oppose the thumb. The fingertips are all grossly sensate and well-perfused, and the radial artery pulse is 2+. A: Right small finger infection with distal interphalangeal joint septic arthritis P: Continue IV antibiotics per the primary team and with the help of infectious disease team. PICC ordered. I anticipate 4-6 weeks of IV antibiotics under the direction of ID. Daily local wound care. We will observe overnight and if continuing to improve into tomorrow I anticipate discharge. Objective Vital signs: Vital Signs Temp Pulse Resp BP Pulse Ox 06/09/18 02:40 17 98 06/09/18 00:00 98.5 F 86 16 158/62 95 06/08/18 19:16 98.5 F 83 16 115/74 93 06/08/18 16:48 98.3 F 74 18 145/73 93 06/08/18 16:32 98.5 F 77 16 134/63 95 06/08/18 16:22 77 12 146/65 94 06/08/18 16:12 81 12 145/72 97 06/08/18 16:02 99.7 F H 81 16 180/74 99 06/08/18 11:35 98.0 F 80 19 138/56 97 Intake and Output 06/08/18 06/09/18 06/09/18 23:59 07:59 15:59 Intake Total 250 / 250 70 / 70 Balance 250 / 250 70 / 70 Intake: IV Fluids 20 / 20 Maxipime 2,000 MG In Water for 20 / 20 inj. (sterile) 20 ML @ 300 mls/ hr IVP Q8HR [facility] Rx#:[id number] Oral 250 / 250 50 / 50 Other: Stool Size Moderate Stool Consistency liquid Stool Color Brown # Voids 1 1 # Bowel Movements 1 Weight 77.4 kg Blood Glucose* 245 165 Patient Weight 06/09/18 23:59 Weight 77.4 kg - Labs CBC & BMP: 06/09/18 03:07 06/08/18 04:31 Labs: Abnormal lab results WBC 4.1 K/mcL (4.3-11.1) L 06/09/18 03:07 RBC 2.74 M/mcL (3.82-4.97) L 06/09/18 03:07 Hgb 9.6 g/dL (11.5-15.4) L 06/09/18 03:07 Hct 28.2 % (35.3-44.9) L 06/09/18 03:07 MCV 102.9 fL (83.0-100.0) H 06/09/18 03:07 MCH 35.0 pg (28.0-33.3) H 06/09/18 03:07 ESR 66 mm/hr (0-15) H 06/07/18 18:32 Creatinine 0.38 mg/dL (0.60-1.20) L 06/08/18 04:31 BUN/Creatinine Ratio 39 (6-26) H 06/08/18 04:31 Glucose 156 mg/dL (70-105) H 06/08/18 04:31 POC Glucose 245 mg/dL (70-99) H 06/08/18 19:57 C-Reactive Protein 30 mg/L (Less than 10) H 06/07/18 18:32 Consult Discharge Plan - Plan Referrals: NONE,PCP [Primary Care Provider] -
--- NOTE | 2018-06-09 09:08 | Internal Med Progress Note ---
Hospitalist Progress Note - Encounter Date of Encounter: 06/09/18 Time of Encounter: 12:11 - Subjective Interval History: at bedside. No acute events. Hand pain continues to improve. Denies fevers/chills. - Exam Vitals: Temp Pulse Resp BP Pulse Ox 98.5 F 86 17 158/62 98 06/09/18 00:00 06/09/18 00:00 06/09/18 02:40 06/09/18 00:00 06/09/18 02:40 Exam: Gen: NAD, sitting up in chair. CVS: RRR Lungs: CTAB abd: soft, NT/ND Ext: no extremity edema. Bandaging is clean. Erythema appreciated in fingers less than yesterday. Tenderness improved. Sensation in tact. n - Assessment and Plan (1) Finger infection Current Visit: Yes Status: Acute Assessment and Plan: s/p I&D outpatient office 06/07/18, repeat I&D 06/08/18 0 SIRS criteria on admission Anticipation that he will need 4-6 IV abx. Continue Vanc/Cefepime Awaiting intra op cultures to finalize. Ortho and ID following Dispo: awaiting intra op cultures to finalize. (2) CHF (congestive heart failure) Current Visit: Yes Status: Chronic Assessment and Plan: No acute issues, continue home medications (3) Hx of CABG Current Visit: Yes Status: Acute (4) Coronary artery disease Current Visit: Yes Status: Chronic Assessment and Plan: Continue jeannie emedications. (5) Anemia Current Visit: No Status: Acute (6) History of CVA (cerebrovascular accident) Current Visit: Yes Status: Acute (7) Diabetes Current Visit: Yes Status: Chronic Assessment and Plan: ISS, diabetic diet when she is able to eat. NPO for now in case needing procedure. (8) History of IA (myocardial infarction) Current Visit: Yes Status: Acute (9) Peripheral artery disease Current Visit: Yes Status: Acute DVT Prophylaxis: Heparin SQ - Time Spent with Patient Total time spent is greater than 50% in coordination of care (as documented) at patient's floor/unit and/or counseling patient: Internal Medicine: Result - Labs CBC & Chem 7: 06/09/18 03:07 06/09/18 08:33 Labs: Short CBC 06/09/18 Range/Units 03:07 WBC 4.1 L (4.3-11.1) K/mcL Hgb 9.6 L (11.5-15.4) g/dL Hct 28.2 L (35.3-44.9) % Plt Count 327 (140-400) K/mcL Neutrophils # 1.9 (1.6-8.9) K/mcL Consult Discharge Plan - Plan Referrals: NONE,PCP [Primary Care Provider] - (2) CHF (congestive heart failure) Qualifiers: Heart failure type: diastolic Heart failure chronicity: chronic Qualified Code(s): I50.32 - Chronic diastolic (congestive) heart failure (4) Coronary artery disease Qualifiers: Coronary Disease-Associated Artery/Lesion type: unspecified vessel or lesion type [place] vs. transplanted heart: [place] heart Associated angina: angina presence unspecified Qualified Code(s): I25.10 - Atherosclerotic heart disease of [place] coronary artery without angina pectoris (5) Anemia Qualifiers: Anemia type: B12 deficiency Vitamin B12 deficiency anemia type: other B12 deficiency Qualified Code(s): D51.8 - Other vitamin B12 deficiency anemias (7) Diabetes Qualifiers: Diabetes mellitus type: type 2 Diabetes mellitus senior living insulin use: unspecified senior living insulin use status Diabetes mellitus complication status: with kidney complications Diabetes mellitus complication detail: with chronic kidney disease Chronic kidney disease stage: unspecified stage Qualified Code(s): E11.22 - Type 2 diabetes mellitus with diabetic chronic kidney disease
[2018-06-09] MEDS: Metoprolol XL (24 HR) Succ 25 MG TAB.ER.24H PO SCH (09:12)
[2018-06-09] MEDS: Cholecalciferol (D-3) 1,000 UNIT TABLET PO SCH (09:13)
[2018-06-09] MEDS: Furosemide 40 MG TABLET PO SCH (09:15)
[2018-06-09] MEDS: Insulin LISPRO 300 UNITS/3 ML VIAL SQ SCH ×4 (09:37→21:37)
[2018-06-09 10:02] LABS: BUN/Creatinine Ratio 30 (6-26); Blood Urea Nitrogen 12 mg/dL (8-23); Calcium 9.4 mg/dL (8.6-10.3); Carbon Dioxide 27 mEq/L (23-29); Chloride 104 mEq/L (98-107); Glucose 152 mg/dL (70-105); Osmolality,Calculated 291 (280-300); Potassium 3.7 mEq/L (3.5-5.1); Sodium 139 mEq/L (136-145); Vancomycin,Trough 9 mcg/mL (5-10); eGFR For Non-African Americans > 60 (> 60)
--- NOTE | 2018-06-09 10:27 | Infectious Disease Progress No ---
Date of Encounter: 06/09/18 Time of Encounter: 09:00 - Assessment and Plan (1) Finger infection Current Visit: Yes Status: Acute Location: Right 5th finger. Causative organism: Unclear. Likely secondary to recent trauma. Failed outpatient oral antibiotics. X-ray of the right hand negative for osteomyelitis. ESR 66, CRP 30. No SIRS criteria. Blood cultures drawn 06/07/18 are pending x 2 sets. Status post bedside I & D in the office 06/07/[address] Villar. Cultures are positive for GBS, but gram stain positive for GNR and GPC. Ortho consulted and following. Status post I & D with I & D right small finger 06/08/[address] Villar. Operative note reviewed. No pus noted intra-op. Intra- op cultures are pending. Currently on Vanc and Cefepime. Recommendations: - Await cultures to finalize. - Wound care and activity restrictions per the ortho team. - Discontinue Vancomycin. - Continue Cefepime 2 grams, but decrease frequency to Q12H. - Start flagyl 500mg PO TID. - Duration of treatment depends on the clinical picture. Will discuss with ortho for recommendations on IV vs. PO antibiotics on discharge. - Monitor renal function and for drug toxicity and dose-adjust antibiotics. - Strict glucose control. (2) Septic arthritis Current Visit: Yes Status: Acute Location: Right hand 5th digit DIP per ortho. Causative organism unclear. Cultures are pending. Status post bedside I & D 06/07/[address] Villar. Status post I & D 06/08/[address] Villar. Antibiotic recommendations as above. Qualifiers: Septic arthritis location: hand Septic arthritis organism: due to unspecified organism Laterality: right Qualified Code(s): M00.9 - Pyogenic arthritis, unspecified (3) Cellulitis Current Visit: No Status: Acute Location: Right hand, 5th digit. Causative organism: Unclear. Failed outpatient oral antibiotics. Ortho consulted. Antibiotic recommendations as above. Qualifiers: Site of cellulitis: extremity Site of cellulitis of extremity: finger Laterality: right Qualified Code(s): L03.011 - Cellulitis of right finger (4) CHF (congestive heart failure) Current Visit: Yes Status: Chronic Qualifiers: Heart failure type: diastolic Heart failure chronicity: chronic Qualified Code(s): I50.32 - Chronic diastolic (congestive) heart failure (5) Coronary artery disease Current Visit: Yes Status: Chronic Qualifiers: Coronary Disease-Associated Artery/Lesion type: unspecified vessel or lesion type [place] vs. transplanted heart: [place] heart Associated angina: angina presence unspecified Qualified Code(s): I25.10 - Atherosclerotic heart disease of [place] coronary artery without angina pectoris (6) Diabetes Current Visit: Yes Status: Chronic Strict glucose control per the primary team. Qualifiers: Diabetes mellitus type: type 2 Diabetes mellitus room server insulin use: unspecified room server insulin use status Diabetes mellitus complication status: with kidney complications Diabetes mellitus complication detail: with chronic kidney disease Chronic kidney disease stage: unspecified stage Qualified Code(s): E11.22 - Type 2 diabetes mellitus with diabetic chronic kidney disease (7) Peripheral artery disease Current Visit: Yes Status: Acute - Subjective Interval history: Patient seen and examined sitting up in the bedside chair with nursing at bedside. Patient states that overall she feels well this morning. Denies fevers, chills, or rigors. Denies chest pain, shortness of breath, or cough. Denies nausea, vomiting, or constipation. Reports 1 diarrhea stool last night, but [facility] nurse reported four loose stools. Denies abdominal pain or urinary complaints. Denies oral thrush or new skin lesions. Reports achy pain to the right hand surgical site, worse since having the dressing changed this morning. Infect Dis PN-Objective Data - Labs CBC & Chem 7: 06/10/18 04:00 06/10/18 04:00 Labs: Laboratory Results - last 24 hr 06/07/18 06/08/18 06/08/18 20:10 08:18 11:42 WBC RBC Hgb Hct MCV MCH MCHC RDW Plt Count MPV Immature Gran % Seg Neutrophils % Lymphocytes % Monocytes % Eosinophils % Basophils % Neutrophils # Lymphocytes # Monocytes # Eosinophils # Basophils # Sodium Potassium Chloride Carbon Dioxide BUN Creatinine Est GFR ( Amer) Est GFR (Non-Af Amer) BUN/Creatinine Ratio Glucose POC Glucose 137 H 164 H 167 H Calculated Osmolality Calcium Vancomycin Trough 06/08/18 06/09/18 06/09/18 19:57 03:07 08:33 WBC 4.1 L RBC 2.74 L Hgb 9.6 L Hct 28.2 L MCV 102.9 H MCH 35.0 H MCHC 34.0 RDW 14.3 Plt Count 327 MPV 10.0 Immature Gran % 0.2 Seg Neutrophils % 46.2 Lymphocytes % 40.2 Monocytes % 10.5 Eosinophils % 1.7 Basophils % 1.2 Neutrophils # 1.9 Lymphocytes # 1.7 Monocytes # 0.4 Eosinophils # 0.1 Basophils # 0.1 Sodium 139 Potassium 3.7 Chloride 104 Carbon Dioxide 27 BUN 12 Creatinine 0.40 L Est GFR ( Amer) > 60 Est GFR (Non-Af Amer) > 60 BUN/Creatinine Ratio 30 H Glucose 152 H POC Glucose 245 H Calculated Osmolality 291 Calcium 9.4 Vancomycin Trough 9 Cultures: Cultures 06/07/18 19:27 Blood Culture - Preliminary Peripheral Venipuncture Culture is incubating and being continuously monitored for growth. Final report to follow. 06/07/18 19:27 Blood Culture - Preliminary Peripheral Venipuncture Culture is incubating and being continuously monitored for growth. Final report to follow. Serology 06/08/18 Range/Units 04:22 Nasal Screen MRSA (PCR) Negative (Negative) Exam - Constitutional Vitals: Temp Pulse Resp BP Pulse Ox 97.8 F 91 16 149/89 96 06/09/18 09:10 06/09/18 09:10 06/09/18 09:10 06/09/18 09:10 06/09/18 09:10 General appearance: cooperative, no acute distress, obese - Head Head exam: Present: atraumatic, normal inspection, normocephalic - Eye Eye exam: Present: EOMI, normal appearance, PERRL Pupils: Present: normal accommodation - ENT ENT exam: Present: mucous membranes moist - Neck Neck exam: Present: normal inspection - Respiratory Respiratory exam: Present: CTAB. Absent: rales, respiratory distress, rhonchi, wheezes - Cardiovascular Cardiovascular exam: Present: RRR, +S1, +S2 - GI/Abdominal GI/Abdominal exam: Present: normal bowel sounds, soft. Absent: distended, tenderness - Extremities Exam Extremities exam: Present: tenderness (Right hand.). Absent: normal inspection (Right hand dressing C/D/I.), pedal edema - Neurological Exam Neurological exam: Present: alert, oriented X3, no focal deficits - Psychiatric Psychiatric exam: Present: normal affect, normal mood - Skin Skin exam: Present: dry, intact, normal color, warm Consult Discharge Plan - Plan Referrals: Estella Leon, SKID MACHINE OPERATOR [Advanced Practice Nurse] - 06/28/18 2:05 pm NONE,PCP [Primary Care Provider] - Prescriptions: cefTRIAXone [Rocephin] 2,000 mg IVPB DAILY #42 vial RX: metroNIDAZOLE [Flagyl] 500 mg PO TID #21 tablet RX: OxyCODONE Immed Rel [Roxicodone 5 MG] 5 mg PO Q6H PRN 5 Days #20 tablet PRN Reason: Pain - Attending Attestation I examined this patient and my medical decision-making was reviewed with the Resident Physician. I agree with the documented findings, disposition and treatment plan as described except to the extent set forth below.
[2018-06-09] MEDS: metroNIDAZOLE 500 MG TABLET PO SCH ×2 (15:08→21:39)
[2018-06-09] MEDS: rOPINIRole 1 MG TABLET PO SCH ×2 (16:18→21:38)
[2018-06-10] MEDS: *HR* Heparin 5,000 UNIT/ML VIAL SQ SCH (05:22)
[2018-06-10] MEDS: OXYCODONE Oral CONC 10 MG/0.5 ML ORAL.SYG SL PRN ×2 (05:27→12:38)
[2018-06-10 06:26] LABS: Basophils % 0.8 %; Eosinophils # 0.1 K/mcL (0.0-0.6); Eosinophils % 1.4 %; Hematocrit 26.9 % (35.3-44.9); Hemoglobin 8.9 g/dL (11.5-15.4); Immature Granulocytes % 0.3 % (0-4); Lymphocytes # 1.3 K/mcL (0.6-4.6); Lymphocytes % 36.3 %; Mean Corpuscular HGB Conc 33.1 g/dL (31.6-35.5); Mean Corpuscular Hemoglobin 34.6 pg (28.0-33.3); Mean Corpuscular Volume 104.7 fL (83.0-100.0); Mean Platelet Volume 10.3 fL (9.4-12.4); Monocytes # 0.4 K/mcL (0.0-1.3); Monocytes % 10.3 %; Neutrophils # 1.9 K/mcL (1.6-8.9); Platelet Count 261 K/mcL (140-400); Red Blood Count 2.57 M/mcL (3.82-4.97); Red Cell Distribution Width 13.9 % (11.5-14.5); Segmented Neutrophils % 50.9 %
[2018-06-10 06:39] LABS: BUN/Creatinine Ratio 40 (6-26); Blood Urea Nitrogen 14 mg/dL (8-23); Carbon Dioxide 27 mEq/L (23-29); Chloride 105 mEq/L (98-107); Glucose 190 mg/dL (70-105); Osmolality,Calculated 290 (280-300); Sodium 137 mEq/L (136-145); eGFR For Non-African Americans > 60 (> 60)
--- NOTE | 2018-06-10 07:36 | Orthopedics Progress Note ---
Date of Encounter: 06/10/18 Time of Encounter: 07:34 - Assessment and Plan (1) Finger infection Current Visit: Yes Status: Acute Subjective Interval history: S: Patient is resting in bed comfortably. Expected pain to the right small finger; improving O: Afebrile on the vital signs are stable Improvement in the redness and swelling to the right small finger No purulence. Tenderness is expected to the surgery sites. She is able to grossly flex and extend the small finger with limitation due to pain and swelling The patient can actively flex and extend all digits, extend the thumb, cross the index and long fingers, make an okay sign, and oppose the thumb. The fingertips are all grossly sensate and well-perfused, and the radial artery pulse is 2+. A: Right small finger infection with distal interphalangeal joint septic arthritis P: I did discuss local wound care with twice daily dressing changes Orthopedically stable for discharge on IV antibiotics Follow-up in one week with either or Prisca Powell in the office for wound reevaluation or sooner if needed Objective Vital signs: Vital Signs Temp Pulse Resp BP Pulse Ox 06/10/18 06:23 97.9 F 70 16 133/69 93 06/10/18 04:50 97.6 F 81 16 170/89 97 06/09/18 22:44 98.0 F 69 16 138/72 94 06/09/18 19:47 98.6 F 80 17 159/72 97 06/09/18 14:14 99.0 F 86 18 126/62 96 06/09/18 10:43 98.6 F 81 16 126/69 96 06/09/18 09:10 97.8 F 91 16 149/89 96 Intake and Output 06/09/18 06/09/18 06/10/18 15:59 23:59 07:59 Intake Total 640 / 640 20 / 20 Output Total 300 / 300 Balance 340 / 340 20 / 20 Intake: IV Fluids 290 / 290 20 / 20 Maxipime 2,000 MG In Water for 20 / 20 20 / 20 inj. (sterile) 20 ML @ 300 mls/ hr IVP Q8HR [facility] Rx#:[id number] Vancocin 1,000 MG In 0.9 % 250 / 250 Sodium Chloride 250 ML @ 167 mls/hr IVPB Q12H [facility] Rx#: [id number] Oral 350 / 350 Output: Urine 300 / 300 Other: Meal Lunch Dinner Percent of Meal Consumed 80% 100% # Voids 1 1 1 Weight 78.7 kg Blood Glucose* 189 302 189 - Labs CBC & BMP: 06/10/18 04:00 06/10/18 04:00 Labs: Abnormal lab results WBC 3.7 K/mcL (4.3-11.1) L 06/10/18 04:00 RBC 2.57 M/mcL (3.82-4.97) L 06/10/18 04:00 Hgb 8.9 g/dL (11.5-15.4) L 06/10/18 04:00 Hct 26.9 % (35.3-44.9) L 06/10/18 04:00 MCV 104.7 fL (83.0-100.0) H 06/10/18 04:00 MCH 34.6 pg (28.0-33.3) H 06/10/18 04:00 ESR 66 mm/hr (0-15) H 06/07/18 18:32 Creatinine 0.35 mg/dL (0.60-1.20) L 06/10/18 04:00 BUN/Creatinine Ratio 40 (6-26) H 06/10/18 04:00 Glucose 190 mg/dL (70-105) H 06/10/18 04:00 POC Glucose 179 mg/dL (70-99) H 06/09/18 16:20 C-Reactive Protein 30 mg/L (Less than 10) H 06/07/18 18:32 Consult Discharge Plan - Plan Referrals: NONE,PCP [Primary Care Provider] -
[2018-06-10] MEDS: Cefepime HCl 2,000 MG in Water for inj. (sterile) 20 ML 20 ML IVP SCH ×2 (08:55→15:37)
[2018-06-10] MEDS: Insulin LISPRO 300 UNITS/3 ML VIAL SQ SCH ×3 (08:56→17:35)
[2018-06-10] MEDS: Metoprolol XL (24 HR) Succ 25 MG TAB.ER.24H PO SCH (08:57)
[2018-06-10] MEDS: metroNIDAZOLE 500 MG TABLET PO SCH ×2 (08:57→15:37)
[2018-06-10] MEDS: Cholecalciferol (D-3) 1,000 UNIT TABLET PO SCH (08:57)
[2018-06-10] MEDS: Furosemide 40 MG TABLET PO SCH (08:57)
--- NOTE | 2018-06-10 10:53 | Infectious Disease Progress No ---
Date of Encounter: 06/10/18 Time of Encounter: 10:51 - Assessment and Plan (1) Finger infection Current Visit: Yes Status: Acute Location: Right 5th finger. Causative organism: Unclear. Likely secondary to recent trauma. Failed outpatient oral antibiotics. X-ray of the right hand negative for osteomyelitis. ESR 66, CRP 30. No SIRS criteria. Blood cultures drawn 06/07/18 are NGTD x 2 sets. Status post bedside I & D in the office 06/07/[address] Villar. Cultures are positive for GBS, but gram stain positive for GNR and GPC. Ortho consulted and following. Status post I & D with I & D right small finger 06/08/[address] Villar. Operative note reviewed. No pus noted intra-op. Intra- op cultures are no growth. Currently on Vanc and Cefepime. Recommendations: - Await cultures to finalize. - Wound care and activity restrictions per the ortho team. - Discontinue Cefepime. - Start rocephin 2 grams IV daily. - Continue flagyl 500mg PO TID until anaerobic cultures finalize. - Duration of treatment depends on the clinical picture. Discussed with ortho who recommends IV antibiotics due to septic arthritis noted on I & D. Continue IV antibiotics until seen in the office by ID. Will likely need 2-4 weeks of IV antibiotics followed by orals. - Monitor renal function and for drug toxicity and dose-adjust antibiotics. - Strict glucose control. - Will need weekly CBC, BUN/Cr, ESR, and CRP. - Will need midline care per protocol. - Follow up with ID 06/28/18 at 1405. (2) Septic arthritis Current Visit: Yes Status: Acute Location: Right hand 5th digit DIP per ortho. Causative organism unclear. Cultures are pending. Status post bedside I & D 06/07/[address] Villar. Status post I & D 06/08/[address] Villar. Antibiotic recommendations as above. Qualifiers: Septic arthritis location: hand Septic arthritis organism: due to unspecified organism Laterality: right Qualified Code(s): M00.9 - Pyogenic arthritis, unspecified (3) Cellulitis Current Visit: No Status: Acute Location: Right hand, 5th digit. Causative organism: Unclear. Failed outpatient oral antibiotics. Ortho consulted. Antibiotic recommendations as above. Qualifiers: Site of cellulitis: extremity Site of cellulitis of extremity: finger Laterality: right Qualified Code(s): L03.011 - Cellulitis of right finger (4) CHF (congestive heart failure) Current Visit: Yes Status: Chronic Qualifiers: Heart failure type: diastolic Heart failure chronicity: chronic Qualified Code(s): I50.32 - Chronic diastolic (congestive) heart failure (5) Coronary artery disease Current Visit: Yes Status: Chronic Qualifiers: Coronary Disease-Associated Artery/Lesion type: unspecified vessel or lesion type [place] vs. transplanted heart: [place] heart Associated angina: angina presence unspecified Qualified Code(s): I25.10 - Atherosclerotic heart disease of [place] coronary artery without angina pectoris (6) Diabetes Current Visit: Yes Status: Chronic Strict glucose control per the primary team. Qualifiers: Diabetes mellitus type: type 2 Diabetes mellitus [place] headgate operator insulin use: unspecified [place] headgate operator insulin use status Diabetes mellitus complication statu s: with kidney complications Diabetes mellitus complication detail: with chronic kidney disease Chronic kidney disease stage: unspecified stage Qualified Code(s): E11.22 - Type 2 diabetes mellitus with diabetic chronic kidney disease (7) Peripheral artery disease Current Visit: Yes Status: Acute - Subjective Interval history: Patient seen and examined. No acute events noted overnight. Patient states that overall she feels well this morning. Denies fevers, chills, or rigors, but states she has been sweating. Denies chest pain, shortness of breath, or cough. Denies vomiting or diarrhea, but states she had some nausea with dry heaves this morning that is relieved since taking Zofran. Last BM was two days ago. Denies abdominal pain or urinary complaints. Denies oral thrush or new skin lesions. Reports achy pain to the right hand surgical site, worse since hitting it on the bedrail this morning. Infect Dis PN-Objective Data - Labs CBC & Chem 7: 06/10/18 04:00 06/10/18 04:00 Labs: Laboratory Results - last 24 hr 06/09/18 06/09/18 06/09/18 07:28 11:45 16:20 WBC RBC Hgb Hct MCV MCH MCHC RDW Plt Count MPV Immature Gran % Seg Neutrophils % Lymphocytes % Monocytes % Eosinophils % Basophils % Neutrophils # Lymphocytes # Monocytes # Eosinophils # Basophils # Sodium Potassium Chloride Carbon Dioxide BUN Creatinine Est GFR ( Amer) Est GFR (Non-Af Amer) BUN/Creatinine Ratio Glucose POC Glucose 165 H 189 H 179 H Calculated Osmolality Calcium 06/10/18 06/10/18 04:00 04:00 WBC 3.7 L RBC 2.57 L Hgb 8.9 L Hct 26.9 L MCV 104.7 H MCH 34.6 H MCHC 33.1 RDW 13.9 Plt Count 261 MPV 10.3 Immature Gran % 0.3 Seg Neutrophils % 50.9 Lymphocytes % 36.3 Monocytes % 10.3 Eosinophils % 1.4 Basophils % 0.8 Neutrophils # 1.9 Lymphocytes # 1.3 Monocytes # 0.4 Eosinophils # 0.1 Basophils # 0.0 Sodium 137 Potassium 4.0 Chloride 105 Carbon Dioxide 27 BUN 14 Creatinine 0.35 L Est GFR ( Amer) > 60 Est GFR (Non-Af Amer) > 60 BUN/Creatinine Ratio 40 H Glucose 190 H POC Glucose Calculated Osmolality 290 Calcium 9.0 Cultures: Cultures 06/07/18 19:27 Blood Culture - Preliminary Peripheral Venipuncture Culture is incubating and being continuously monitored for growth. Final report to follow. 06/07/18 19:27 Blood Culture - Preliminary Peripheral Venipuncture Culture is incubating and being continuously monitored for growth. Final report to follow. Serology 06/08/18 Range/Units 04:22 Nasal Screen MRSA (PCR) Negative (Negative) Exam - Constitutional Vitals: Temp Pulse Resp BP Pulse Ox 97.9 F 70 16 133/69 93 06/10/18 06:23 06/10/18 06:23 06/10/18 06:23 06/10/18 06:23 06/10/18 06:23 General appearance: cooperative, no acute distress, obese - Head Head exam: Present: atraumatic, normal inspection, normocephalic - Eye Eye exam: Present: EOMI, normal appearance, PERRL Pupils: Present: normal accommodation - ENT ENT exam: Present: mucous membranes moist - Neck Neck exam: Present: normal inspection - Respiratory Respiratory exam: Present: CTAB. Absent: rales, respiratory distress, rhonchi, wheezes - Cardiovascular Cardiovascular exam: Present: RRR, +S1, +S2 - GI/Abdominal GI/Abdominal exam: Present: distended (obese), normal bowel sounds, soft. Absent: tenderness - Extremities Exam Extremities exam: Present: pedal edema (Trace RLE), tenderness (right hand). Absent: normal inspection (Right hand dressing C/D/I.) - Neurological Exam Neurological exam: Present: alert, oriented X3, no focal deficits - Psychiatric Psychiatric exam: Present: normal affect, normal mood - Skin Skin exam: Present: dry, intact, normal color, warm Consult Discharge Plan - Plan Referrals: NONE,PCP [Primary Care Provider] - Estella Leon, SUPERVISOR DRAPERY HANGING [Advanced Practice Nurse] - 06/28/18 2:05 pm Prescriptions: cefTRIAXone [Rocephin] 2,000 mg IVPB DAILY #42 vial RX: metroNIDAZOLE [Flagyl] 500 mg PO TID #21 tablet RX: OxyCODONE Immed Rel [Roxicodone 5 MG] 5 mg PO Q6H PRN 5 Days #20 tablet PRN Reason: Pain - Attending Attestation I examined this patient and my medical decision-making was reviewed with the Resident Physician. I agree with the documented findings, disposition and treatment plan as described except to the extent set forth below.
[2018-06-10 11:16] VITALS: BP 146/74
--- NOTE | 2018-06-10 11:51 | Discharge Summary ---
Orders not resulted at time of discharge: Pending orders 06/07/18 19:27 Culture,Blood [BC] Routine 06/08/18 15:50 Culture,Anaerobic [RM] Routine 06/11/18 04:00 BMP [Basic Metabolic Panel] AM 0400 Complete Blood Count [HEME] AM 0400 06/12/18 04:00 BMP [Basic Metabolic Panel] AM 0400 Complete Blood Count [HEME] AM 0400 06/13/18 04:00 Complete Blood Count [HEME] AM 0400 06/14/18 04:00 Complete Blood Count [HEME] AM 0400 06/15/18 04:00 Complete Blood Count [HEME] AM 0400 06/16/18 04:00 Complete Blood Count [HEME] AM 0400 06/17/18 04:00 Complete Blood Count [HEME] AM 0400 Date of Encounter: 06/10/18 Time of Encounter: 11:48 - Discharge Diagnosis (1) Finger infection Priority: Primary Status: Acute (2) CHF (congestive heart failure) Priority: Secondary Status: Chronic Qualifiers: Heart failure type: diastolic Heart failure chronicity: chronic Qualified Code(s): I50.32 - Chronic diastolic (congestive) heart failure (3) Hx of CABG Priority: Secondary Status: Acute (4) Coronary artery disease Priority: Secondary Status: Chronic Qualifiers: Coronary Disease-Associated Artery/Lesion type: unspecified vessel or lesion type [place] vs. transplanted heart: [place] heart Associated angina: angina presence unspecified Qualified Code(s): I25.10 - Atherosclerotic heart disease of [place] coronary artery without angina pectoris (5) Anemia Priority: Secondary Status: Acute Qualifiers: Anemia type: B12 deficiency Vitamin B12 deficiency anemia type: other B12 deficiency Qualified Code(s): D51.8 - Other vitamin B12 deficiency anemias (6) History of CVA (cerebrovascular accident) Priority: Secondary Status: Acute (7) Diabetes Priority: Secondary Status: Chronic Qualifiers: Diabetes mellitus type: type 2 Diabetes mellitus care home insulin use: unspecified care home insulin use status Diabetes mellitus complication status: with kidney complications Diabetes mellitus complication detail: with chronic kidney disease Chronic kidney disease stage: unspecified stage Qualified Code(s): E11.22 - Type 2 diabetes mellitus with diabetic chronic kidney disease (8) History of NV (myocardial infarction) Priority: Secondary Status: Acute (9) Peripheral artery disease Priority: Secondary Status: Acute Hospital course: Ms. Alva is a 72 year old female who was seen in the office earlier today by Orthopedic Surgery. Patient has histoyr of a mucous cyst in right small finger. she had this drained 3 weeks ago and thick clear discharge came from the cyst. Afterwords there was no appearance of infection. She had minor trauma 3 days ago scraping her arm on a cabinet. Two days ago patient states she went to [facility] and she was treated and discharged home on clindamycin. Her primary care saw the patient's wound and referred her to Orthopedic Surgeon Dr. Villar . Patient underwent I&D in office and was sent here as a direct admit as there are concerns for septic arthritis of distal interphalangeal joint and to receive IV antibiotics. She was started on broad spectrum antibiotics. She had I&D in office prior to admission on 06/07 and had a repeat I&D during admission on 06/08 by Ortho. She tolerated procedure well. Infectious Disease was consulted. Wo und culture grew strep agalactiae and based on sensitivities will be discharged on Rocephin. She will also be prescribed Flagyl until final anaerobic cultures result. - Time Spent with Patient Total time spent providing and/or coordinating discharge services: - Discharge Medications Prescriptions: cefTRIAXone [Rocephin] 2,000 mg IVPB DAILY #42 vial metroNIDAZOLE [Flagyl] 500 mg PO TID #21 tablet OxyCODONE Immed Rel [Roxicodone 5 MG] 5 mg PO Q6H PRN 5 Days #20 tablet PRN Reason: Pain Home Medications: Duloxetine HCl [Cymbalta] 60 mg PO DAILY 11/28/15 [History] Furosemide [Lasix] 40 mg PO DAILY 11/28/15 [History] Metformin HCl [Glucophage] 1,000 mg PO BID 11/28/15 [History] Ropinirole HCl [Requip] 2 mg PO HS 11/28/15 [History] Cholecalciferol (D-3) [Vitamin D] 5,000 unit PO DAILY 06/23/16 [History] Ondansetron [Zofran] 8 mg PO DAILY 09/09/17 [History] Cyanocobalamin (B-12) [Vitamin B12] 1,000 mcg IM Q3W #6 mls 03/23/18 [Rx] Atorvastatin Calcium [Lipitor] 20 mg PO QPM 06/08/18 [History] Denosumab [Prolia (For Outpatient Infusion)] 60 mg SQ [id number] 06/08/18 [History] Metoprolol Succinate 50 mg PO DAILY 06/08/18 [History] Tramadol HCl [Ultram] 50 mg PO Q6H PRN 06/08/18 [History] OxyCODONE Immed Rel [Roxicodone 5 MG] 5 mg PO Q6H PRN 5 Days #20 tablet 06/10/18 [Rx] cefTRIAXone [Rocephin] 2,000 mg IVPB DAILY #42 vial 06/10/18 [Rx] metroNIDAZOLE [Flagyl] 500 mg PO TID #21 tablet 06/10/18 [Rx] Allergies/Adverse Reactions: Allergy/AdvReac Type Severity Reaction Status Date / Time Penicillins Allergy Hives Verified 06/08/18 13:22 IV CONTRAST AdvReac Hives Uncoded 06/08/18 13:22 Date of admission: 06/07/18 18:12 Primary care physician: PCP NONE Consults: 06/07/18 18:10 Consult to Orthopedic Surgery [CONS] Routine Consulting Provider: Roque Villar Reason for Consult: OM finger Call Completed: Yes 06/08/18 08:07 Consult to Infectious Diseases [CONS] Routine Consulting Provider: Infectious Disease Gill Reason for Consult: IV assitance for septic arthritis of the right small finger DIP joint. Call Completed: No 06/09/18 07:47 Consult to Invasive Line Access Team [CONS] Routine Reason for Consult: Picc Line Insertion Line Type: PICC PICC line indications: USP Med/Antibiotic 06/09/18 10:18 Consult to Electrolysis Needle Operator [CONS] Routine Reason for SW Consult: IV ANTIBIOTIC DC PLANNING 06/09/18 10:34 Consult to Invasive Line Access Team [CONS] Routine Reason for Consult: Picc Line Insertion Line Type: PICC Discharging clinician: Venkatesh Reddy - Constitutional Vitals: Temp Pulse Resp BP Pulse Ox 98.4 F 74 16 146/74 98 06/10/18 11:04 06/10/18 11:04 06/10/18 11:04 06/10/18 11:04 06/10/18 11:04 General appearance: Present: A&O X 3 Exam: Gen: NAD, sitting up in chair. CVS: RRR Lungs: CTAB abd: soft, NT/ND Ext: no extremity edema. Bandaging is clean. Erythema and tenderness improved. Sensation in tact. n - Patient Status Disposition: Home Health Service Condition: Good Functional capacity at discharge: independent ambulation Overall status at discharge: patient is progressing back to baseline - Discharge Instructions Follow Up With: Estella Leon, CHAIN CARRIER [Advanced Practice Nurse] - 06/28/18 2:05 pm NONE,PCP [Primary Care Provider] - - Diet and Activity Activity: return to work once cleared by your PCP/specialist Diet: advance to your usual diet
--- NOTE | 2018-06-10 12:07 | Physician Discharge Referral ---
Home Health/Hosp Referral Info Transfer to: Home Health Provider in Charge Post Discharge: PCP - Diagnosis (1) Finger infection Priority: Primary Status: Acute (2) CHF (congestive heart failure) Priority: Secondary Status: Chronic (3) Hx of CABG Priority: Secondary Status: Acute (4) Coronary artery disease Priority: Secondary Status: Chronic (5) Anemia Priority: Secondary Status: Acute (6) History of CVA (cerebrovascular accident) Priority: Secondary Status: Acute (7) Diabetes Priority: Secondary Status: Chronic (8) History of ID (myocardial infarction) Priority: Secondary Status: Acute (9) Peripheral artery disease Priority: Secondary Status: Acute - Respiratory Orders Smoking Cessation: Smoking cessation has been advised. For more information, call the [employer] Tobacco Quit Line at 3-575-LSER-NOW. - Diet/Nutrition Diet/Nutrition: List: Resume regular diet - Activity Activity Orders: Up ad dejah - Services Needed Following services are medically necessary services: Nursing, Home Infusion - Transfer Medications Prescriptions: cefTRIAXone [Rocephin] 2,000 mg IVPB DAILY #42 vial metroNIDAZOLE [Flagyl] 500 mg PO TID #21 tablet OxyCODONE Immed Rel [Roxicodone 5 MG] 5 mg PO Q6H PRN 5 Days #20 tablet PRN Reason: Pain Home Medications: Duloxetine HCl [Cymbalta] 60 mg PO DAILY 11/28/15 [History] Furosemide [Lasix] 40 mg PO DAILY 11/28/15 [History] Metformin HCl [Glucophage] 1,000 mg PO BID 11/28/15 [History] Ropinirole HCl [Requip] 2 mg PO HS 11/28/15 [History] Cholecalciferol (D-3) [Vitamin D] 5,000 unit PO DAILY 06/23/16 [History] Ondansetron [Zofran] 8 mg PO DAILY 09/09/17 [History] Cyanocobalamin (B-12) [Vitamin B12] 1,000 mcg IM Q3W #6 mls 03/23/18 [Rx] Atorvastatin Calcium [Lipitor] 20 mg PO QPM 06/08/18 [History] Denosumab [Prolia (For Outpatient Infusion)] 60 mg SQ [id number] 06/08/18 [History] Metoprolol Succinate 50 mg PO DAILY 06/08/18 [History] Tramadol HCl [Ultram] 50 mg PO Q6H PRN 06/08/18 [History] OxyCODONE Immed Rel [Roxicodone 5 MG] 5 mg PO Q6H PRN 5 Days #20 tablet 06/10/18 [Rx] cefTRIAXone [Rocephin] 2,000 mg IVPB DAILY #42 vial 06/10/18 [Rx] metroNIDAZOLE [Flagyl] 500 mg PO TID #21 tablet 06/10/18 [Rx] Allergies/Adverse Reactions: Allergy/AdvReac Type Severity Reaction Status Date / Time Penicillins Allergy Hives Verified 06/08/18 13:22 IV CONTRAST AdvReac Hives Uncoded 06/08/18 13:22 Certification: Further, I certify that my clinical findings support that this patient is homebound (i.e. absences from home require considerable and taxing effort and are for medical reasons or tenriism services or infrequently or short duration when for other reasons) because: Homebound Reason: Patient requires assistance of a person or device to safely leave home, Post-surgery restriction and or conditions limit ability to leave home Attestation: My signature below is to certify that this patient is under my care and that I, or nurse practitioner, or a physician's ophthalmology assistant working with me, has a [id number] encounter with this patient.
--- NOTE | 2018-06-10 16:58 | Physician Discharge Referral ---
ExtendedCare Referral Info Provider in Charge after Transfer: Other Institutional Level of Care: Skilled - Diagnosis (1) Finger infection Priority: Primary Status: Acute (2) CHF (congestive heart failure) Priority: Secondary Status: Chronic (3) Hx of CABG Priority: Secondary Status: Acute (4) Coronary artery disease Priority: Secondary Status: Chronic (5) Anemia Priority: Secondary Status: Acute (6) History of CVA (cerebrovascular accident) Priority: Secondary Status: Acute (7) Diabetes Priority: Secondary Status: Chronic (8) History of [place] (myocardial infarction) Priority: Secondary Status: Acute (9) Peripheral artery disease Priority: Secondary Status: Acute - Transfer Medications Prescriptions: cefTRIAXone [Rocephin] 2,000 mg IVPB DAILY #42 vial metroNIDAZOLE [Flagyl] 500 mg PO TID #21 tablet OxyCODONE Immed Rel [Roxicodone 5 MG] 5 mg PO Q6H PRN 5 Days #20 tablet PRN Reason: Pain Tramadol HCl [Ultram] 50 mg PO QID PRN 3 Days #12 tab PRN Reason: Pain Home Medications: Duloxetine HCl [Cymbalta] 60 mg PO DAILY 11/28/15 [History] Furosemide [Lasix] 40 mg PO DAILY 11/28/15 [History] Metformin HCl [Glucophage] 1,000 mg PO BID 11/28/15 [History] Ropinirole HCl [Requip] 2 mg PO HS 11/28/15 [History] Cholecalciferol (D-3) [Vitamin D] 5,000 unit PO DAILY 06/23/16 [History] Ondansetron [Zofran] 8 mg PO DAILY 09/09/17 [History] Cyanocobalamin (B-12) [Vitamin B12] 1,000 mcg IM Q3W #6 mls 03/23/18 [Rx] Atorvastatin Calcium [Lipitor] 20 mg PO QPM 06/08/18 [History] Denosumab [Prolia (For Outpatient Infusion)] 60 mg SQ [id number] 06/08/18 [History] Metoprolol Succinate 50 mg PO DAILY 06/08/18 [History] Tramadol HCl [Ultram] 50 mg PO Q6H PRN 06/08/18 [History] OxyCODONE Immed Rel [Roxicodone 5 MG] 5 mg PO Q6H PRN 5 Days #20 tablet 06/10/18 [Rx] Tramadol HCl [Ultram] 50 mg PO QID PRN 3 Days #12 tab 06/10/18 [Rx] cefTRIAXone [Rocephin] 2,000 mg IVPB DAILY #42 vial 06/10/18 [Rx] metroNIDAZOLE [Flagyl] 500 mg PO TID #21 tablet 06/10/18 [Rx] Allergies/Adverse Reactions: Allergy/AdvReac Type Severity Reaction Status Date / Time Penicillins Allergy Hives Verified 06/08/18 13:22 IV CONTRAST AdvReac Hives Uncoded 06/08/18 13:22 - Respiratory Orders Smoking Cessation: Smoking cessation has been advised. For more information, call the [place] Tobacco Quit Line at 8-602-KFOKNOW. CERTIFICATION: I certify that the transfer of the above named patient to an Extended Care Facility is necessary for the continuing treatment of the diagnosis listed. The above information is true and accurate reflection of patient's current condition. Confidential - Redisclosure prohibited without a patient's written consent.
[2018-06-20] MEDS ORDERED: Cyanocobalamin (B-12) 1,000 MCG/ML VIAL IM SCH ×2 (09:00)
== END 2018-06-10 18:06 | disposition home health service (06) | DRG 513 ==
LOC: 3NENU → SUATTDRO 18:12
PROVIDERS: ADMIT Student in an Organized Health Care Education/Training Program; ATTEND Student in an Organized Health Care Education/Training Program

== ENCOUNTER 2019-05-17 06:17 | Inpatient (IN) ==
[~2019-05-17 06:17] MED LIST: Bacitracin 50,000 UNIT, Polymyxin B Sulfate 500,000 UNIT, Sodium Chloride IRRigation 1,... IR ONE
[2019-05-17] MEDS ORDERED: Clindamycin 900 MG/50 ML 900 MG/50 ML IV.SOLN IVPB ONE (06:44)
[2019-05-17] MEDS ORDERED: Ringers Solution, Lactated 1,000 ML IVC SCH (06:45)
[2019-05-17] MEDS ORDERED: Acetaminophen IV 1,000 MG/100 ML INFUS..BTL IVPB ONE (07:06)
[2019-05-17] MEDS ORDERED: *HR* Methadone 10 MG TABLET PO ONE (07:07)
[2019-05-17] MEDS ORDERED: Gabapentin 300 MG CAPSULE PO ONE (07:07)
[2019-05-17] MEDS ORDERED: *HR* HYDROcodone/Acet 5/325 mg TABLET PO PRN (07:09)
[2019-05-17] MEDS ORDERED: *HR* FentaNYL (PF) 100 MCG/2 ML VIAL ONE (07:20)
[2019-05-17] MEDS ORDERED: *HR* Propofol 200 MG/20 ML VIAL IVP ONE ×2 (07:21→08:38)
[2019-05-17] MEDS ORDERED: Lidocaine HCL 4 ML Topical Solution (Laryng-O-Jet Kit Sterile Pak) TP ONE (07:24)
[2019-05-17] MEDS ORDERED: Lidocaine -MPF 2% 2 ML VIAL ONE (07:24)
[2019-05-17] MEDS ORDERED: *HR* Rocuronium Bromide 50 MG/5 ML VIAL ONE (07:24)
[2019-05-17] MEDS ORDERED: Ondansetron 4 MG/2 ML VIAL ONE (07:24)
[2019-05-17] MEDS ORDERED: *HR* Succinylcholine 200 MG/10 ML VIAL IVP ONE ×2 (07:24→12:26)
[2019-05-17] MEDS ORDERED: Dexamethasone 4 MG/ML VIAL ONE (07:24)
[2019-05-17] MEDS ORDERED: *HR* Remifentanil 1 MG VIAL IVP ONE ×2 (07:29→10:50)
[2019-05-17] MEDS ORDERED: Propofol 500 MG/50 ML INFUS..BTL ONE (07:33)
[2019-05-17] MEDS ORDERED: EPHEDrine 50 MG/ML VIAL ONE (09:12)
[2019-05-17] MEDS ORDERED: *HR* Labetalol 20 MG/4 ML SYRINGE IVP ONE (11:31)
[2019-05-17] MEDS: Morphine Sulfate 2 MG/ML SYRINGE IVP PRN ×4 (12:06→12:43)
[2019-05-17] MEDS ORDERED: Diclofenac Sodium (24 HR) 100 MG TABLET PO PRN (13:47)
[2019-05-17] MEDS ORDERED: Ondansetron 4 MG/2 ML VIAL IVP PRN (13:47)
[2019-05-17] MEDS ORDERED: Acetaminophen 325 MG TABLET PO PRN (13:47)
[2019-05-17] MEDS ORDERED: Cyanocobalamin (B-12) 1,000 MCG/ML VIAL IM SCH (13:47)
[2019-05-17] MEDS ORDERED: Naloxone 0.4 MG/ML INJ IVP PRN (13:47)
[2019-05-17] MEDS ORDERED: Ondansetron ODT 4 MG TAB.RAPDIS PO PRN (13:47)
[2019-05-17] MEDS: *HR* Metformin 500 MG TABLET PO SCH (15:26)
[2019-05-17] MEDS: *HR* OxyCODONE Immed Rel 5 MG TABLET PO PRN ×2 (15:34→22:58)
[2019-05-17] MEDS ORDERED: D5% in Water 1,000 ML IVC PRN (17:10)
[2019-05-17] MEDS ORDERED: Dextrose Gel 15 GM/37.5 ML TUBE PO PRN ×2 (17:10)
[2019-05-17] MEDS ORDERED: *HR* Dextrose 50 % in Water (Syg) 50 ML SYRINGE IVP PRN (17:10)
[2019-05-17] MEDS: rOPINIRole 1 MG TABLET PO SCH (21:44)
[2019-05-17] MEDS: Ringers Solution, Lactated 1,000 ML IVC SCH (22:58)
[2019-05-18] MEDS: Ringers Solution, Lactated 1,000 ML IVC SCH (02:26)
[2019-05-18] MEDS: *HR* OxyCODONE Immed Rel 5 MG TABLET PO PRN ×4 (05:46→23:02)
[2019-05-18] MEDS: *HR* Metformin 500 MG TABLET PO SCH ×2 (07:52→18:46)
[2019-05-18] MEDS: *HR* HYDROcodone/Acet 5/325 mg TABLET PO PRN (07:52)
[2019-05-18 14:20] LABS: Basophils % 0.5 %; Eosinophils % 0.5 %; Hematocrit 27.5 % (35.3-44.9); Immature Granulocytes % 0.4 % (0-4); Lymphocytes # 1.4 K/mcL (0.6-4.6); Lymphocytes % 17.5 %; Mean Corpuscular HGB Conc 33.8 g/dL (31.6-35.5); Mean Corpuscular Hemoglobin 33.6 pg (28.0-33.3); Mean Corpuscular Volume 99.3 fL (83.0-100.0); Mean Platelet Volume 10.6 fL (9.4-12.4); Monocytes # 0.8 K/mcL (0.0-1.3); Monocytes % 10.9 %; Neutrophils # 5.4 K/mcL (1.6-8.9); Platelet Count 257 K/mcL (140-400); Red Blood Count 2.77 M/mcL (3.82-4.97); Red Cell Distribution Width 13.3 % (11.5-14.5); Segmented Neutrophils % 70.2 %; White Blood Count 7.7 K/mcL (4.3-11.1)
[2019-05-18 14:27] LABS: Hemoglobin 9.3 g/dL (11.5-15.4)
[2019-05-18 14:41] LABS: BUN/Creatinine Ratio 27 (6-26); Blood Urea Nitrogen 16 mg/dL (8-23); Calcium 9.1 mg/dL (8.6-10.3); Carbon Dioxide 28 mEq/L (23-29); Chloride 102 mEq/L (98-107); Glucose 197 mg/dL (70-105); Osmolality,Calculated 291 (280-300); Potassium 3.8 mEq/L (3.5-5.1); Sodium 137 mEq/L (136-145); eGFR For African Americans > 60 (> 60); eGFR For Non-African Americans > 60 (> 60)
[2019-05-18] MEDS: tiZANidine 4 MG TABLET PO PRN (14:43)
[2019-05-18] MEDS: rOPINIRole 1 MG TABLET PO SCH (21:37)
[2019-05-18] MEDS: Insulin LISPRO 300 UNITS/3 ML VIAL SQ SCH (23:02)
[2019-05-19] MEDS: *HR* OxyCODONE Immed Rel 5 MG TABLET PO PRN ×2 (04:16→19:52)
[2019-05-19 05:08] LABS: Basophils % 0.6 %; Eosinophils # 0.1 K/mcL (0.0-0.6); Eosinophils % 1.3 %; Hematocrit 27.4 % (35.3-44.9); Immature Granulocytes % 0.5 % (0-4); Lymphocytes # 2.1 K/mcL (0.6-4.6); Lymphocytes % 33.1 %; Mean Corpuscular HGB Conc 32.8 g/dL (31.6-35.5); Mean Corpuscular Hemoglobin 32.7 pg (28.0-33.3); Mean Corpuscular Volume 99.6 fL (83.0-100.0); Mean Platelet Volume 10.6 fL (9.4-12.4); Monocytes # 0.7 K/mcL (0.0-1.3); Monocytes % 11.3 %; Neutrophils # 3.3 K/mcL (1.6-8.9); Platelet Count 257 K/mcL (140-400); Red Blood Count 2.75 M/mcL (3.82-4.97); Red Cell Distribution Width 13.4 % (11.5-14.5); Segmented Neutrophils % 53.2 %; White Blood Count 6.2 K/mcL (4.3-11.1)
[2019-05-19 05:25] LABS: BUN/Creatinine Ratio 29 (6-26); Blood Urea Nitrogen 12 mg/dL (8-23); Carbon Dioxide 27 mEq/L (23-29); Chloride 102 mEq/L (98-107); Glucose 157 mg/dL (70-105); Osmolality,Calculated 283 (280-300); Potassium 3.7 mEq/L (3.5-5.1); Sodium 135 mEq/L (136-145); eGFR For African Americans > 60 (> 60); eGFR For Non-African Americans > 60 (> 60)
[2019-05-19] MEDS: Ringers Solution, Lactated 1,000 ML IVC SCH ×3 (07:55→13:44)
[2019-05-19] MEDS: tiZANidine 4 MG TABLET PO PRN (08:07)
[2019-05-19] MEDS: *HR* HYDROcodone/Acet 5/325 mg TABLET PO PRN (08:07)
[2019-05-19] MEDS: *HR* Metformin 500 MG TABLET PO SCH ×2 (08:07→17:41)
[2019-05-19] MEDS: Insulin LISPRO 300 UNITS/3 ML VIAL SQ SCH ×4 (08:12→23:09)
[2019-05-19] MEDS ORDERED: HYDROcodone BIT/Homatropine 5 MG TABLET PO PRN (13:07)
[2019-05-19] MEDS: Acetaminophen 325 MG TABLET PO SCH ×3 (13:45→23:08)
[2019-05-19] MEDS: rOPINIRole 1 MG TABLET PO SCH (19:09)
[2019-05-20] MEDS: *HR* OxyCODONE Immed Rel 5 MG TABLET PO PRN ×3 (01:41→13:07)
[2019-05-20] MEDS: Ringers Solution, Lactated 1,000 ML IVC SCH (04:42)
[2019-05-20] MEDS: tiZANidine 4 MG TABLET PO PRN ×2 (06:27→15:01)
[2019-05-20] MEDS: Acetaminophen 325 MG TABLET PO SCH ×2 (06:27→11:58)
[2019-05-20] MEDS: *HR* Metformin 500 MG TABLET PO SCH (08:31)
[2019-05-20] MEDS: Insulin LISPRO 300 UNITS/3 ML VIAL SQ SCH ×2 (08:32→11:56)
[2019-05-20 15:33] VITALS: BP 130/84
== END 2019-05-20 15:50 | DRG 455 ==
LOC: SAMDAY 06:17 → 3NENU 13:46
PROVIDERS: ADMIT Orthopaedic Surgery Orthopaedic Surgery of the Spine; ATTEND Orthopaedic Surgery Orthopaedic Surgery of the Spine

== ENCOUNTER 2022-03-07 13:25 | Inpatient (IN) ==
[2022-03-07] MEDS ORDERED: *HR* Heparin 5,000 UNIT/ML VIAL IVP PRN (18:02)
[2022-03-07] MEDS ORDERED: Naloxone 0.4 MG/ML INJ IVP PRN (19:42)
[2022-03-07] MEDS ORDERED: D5% in Water 1,000 ML IVC PRN (19:47)
[2022-03-07] MEDS ORDERED: *HR* Dextrose 50 % in Water (Syg) 50 ML SYRINGE IVP PRN (19:47)
[2022-03-07] MEDS ORDERED: Dextrose Gel 15 GM/37.5 ML TUBE PO PRN ×2 (19:47)
[2022-03-07] MEDS: Heparin 25,000UNIT/250ML 1/2NS 25,000 UNIT/250 ML IV.SOLN IVC SCH (20:06)
[2022-03-07] MEDS: DilTIAZem 50 MG/50 ML IV.SOLN IVC SCH (20:07)
[2022-03-07 20:13] LABS: Basophils % 0.4 %; Eosinophils % 0.4 %; Hematocrit 38.2 % (35.3-44.9); Hemoglobin 12.3 g/dL (11.5-15.4); Immature Granulocytes % 1.6 % (0-4); Lymphocytes # 1.6 K/mcL (0.6-4.6); Lymphocytes % 14.9 %; Mean Corpuscular HGB Conc 32.2 g/dL (31.6-35.5); Mean Corpuscular Hemoglobin 29.8 pg (28.0-33.3); Mean Corpuscular Volume 92.5 fL (83.0-100.0); Mean Platelet Volume 10.3 fL (9.4-12.4); Monocytes # 0.6 K/mcL (0.0-1.3); Monocytes % 5.4 %; Neutrophils # 8.4 K/mcL (1.6-8.9); Platelet Count 209 K/mcL (140-400); Red Blood Count 4.13 M/mcL (3.82-4.97); Segmented Neutrophils % 77.3 %; White Blood Count 10.9 K/mcL (4.3-11.1)
[2022-03-07 20:21] LABS: INR 0.9; Prothrombin Time 10.5 Seconds (9.4-12.1)
[2022-03-07 20:24] LABS: Activated Partial Thrombo Time 51.3 Seconds (26.0-36.0)
[2022-03-07 20:53] LABS: Alanine Aminotransferase 52 Units/L (7-52); Albumin 3.5 g/dL (3.5-5.7); Albumin/Globulin Ratio 1.4 (1.1-2.2); Alkaline Phosphatase 83 Units/L (34-104); Aspartate Amino Transferase 36 Units/L (13-39); BUN/Creatinine Ratio 43 (6-26); Bilirubin,Total 0.6 mg/dL (0.3-1.0); Blood Urea Nitrogen 18 mg/dL (8-23); Calcium 8.2 mg/dL (8.6-10.3); Carbon Dioxide 22 mEq/L (23-29); Chloride 110 mEq/L (98-107); Chol/HDL Ratio 3.6 (0-4.9); Cholesterol 161 mg/dL (< 200); Globulin 2.5 g/dL (2.4-3.5); Glucose 286 mg/dL (70-105); HDL Cholesterol 45 mg/dL (40-59); LDL Cholesterol,Calculated 87 mg/dL (< 100); Osmolality,Calculated 298 (280-300); Phosphorous 1.9 mg/dL (2.7-4.5); Potassium 4.2 mEq/L (3.5-5.1); Sodium 138 mEq/L (136-145); Triglycerides 147 mg/dL (< 150); Troponin I 3.74 ng/mL (< 0.04); eGFR For African Americans > 60 (> 60); eGFR For Non-African Americans > 60 (> 60)
[2022-03-07] MEDS ORDERED: rOPINIRole 1 MG TABLET PO ONE (22:30)
[2022-03-07] MEDS: Insulin LISPRO 300 UNITS/3 ML VIAL SUBQ SCH (22:48)
[2022-03-07 23:43] LABS: Adenovirus Not Detected (Not Detect); Bordetella Pertussis Not Detected (Not Detect); Chlamydophila pneumoniae Not Detected (Not Detect); Coronavirus 229E Not Detected (Not Detect); Coronavirus HKU1 Not Detected (Not Detect); Coronavirus NL63 Not Detected (Not Detect); Coronavirus OC43 Not Detected (Not Detect); Human Metapneumovirus Not Detected (Not Detect); Human Rhinovirus/Enterovirus Not Detected (Not Detect); Influenza A Subtype 2009 H1 Not Detected (Not Detect); Influenza B Not Detected (Not Detect); Mycoplasma pneumoniae Not Detected (Not Detect); Parainfluenza Virus 1 Not Detected (Not Detect); Parainfluenza Virus 2 Not Detected (Not Detect); Parainfluenza Virus 3 Not Detected (Not Detect); Parainfluenza Virus 4 Not Detected (Not Detect); Respiratory Syncytial Virus Not Detected (Not Detect); SARS-CoV-2 Not Detected (Not Detect)
[2022-03-08] MEDS: Insulin LISPRO 300 UNITS/3 ML VIAL SUBQ SCH ×6 (07:18→21:02)
[2022-03-08] MEDS: Aspirin 81 MG TAB.CHEW PO SCH (07:50)
[2022-03-08] MEDS: *HR* HYDROcodone/Acet 5/325 mg TABLET PO PRN (07:51)
[2022-03-08] MEDS: Pantoprazole 40 MG VIAL IVP SCH (07:51)
[2022-03-08] MEDS: Heparin 25,000UNIT/250ML 1/2NS 25,000 UNIT/250 ML IV.SOLN IVC SCH (09:48)
[2022-03-08] MEDS ORDERED: Cyanocobalamin (B-12) 1,000 MCG/ML VIAL IM SCH (11:00)
[2022-03-08] MEDS: Ondansetron ODT 4 MG TAB.RAPDIS SL PRN (15:48)
[2022-03-08] MEDS: DilTIAZem 50 MG/50 ML IV.SOLN IVC SCH ×3 (15:56→21:01)
[2022-03-08] MEDS: Acetaminophen 325 MG TABLET PO PRN (17:27)
[2022-03-08] MEDS: *HR* Heparin 5,000 UNIT/ML VIAL IVP PRN (17:53)
[2022-03-08] MEDS: rOPINIRole 1 MG TABLET PO SCH (20:59)
[2022-03-08] MEDS: Insulin DETEMIR 100 UNIT/ML X5UNITS SUBQ SCH (21:02)
[2022-03-09 07:52] LABS: Basophils % 0.2 %; Eosinophils % 0.2 %; Hematocrit 38.7 % (35.3-44.9); Hemoglobin 12.4 g/dL (11.5-15.4); Immature Granulocytes % 1.3 % (0-4); Lymphocytes # 1.6 K/mcL (0.6-4.6); Mean Corpuscular Hemoglobin 29.3 pg (28.0-33.3); Mean Corpuscular Volume 91.5 fL (83.0-100.0); Mean Platelet Volume 10.4 fL (9.4-12.4); Monocytes # 0.6 K/mcL (0.0-1.3); Monocytes % 6.3 %; Neutrophils # 7.5 K/mcL (1.6-8.9); Platelet Count 225 K/mcL (140-400); Red Blood Count 4.23 M/mcL (3.82-4.97); Red Cell Distribution Width 13.9 % (11.5-14.5); White Blood Count 9.9 K/mcL (4.3-11.1)
[2022-03-09 08:21] LABS: BUN/Creatinine Ratio 52 (6-26); Blood Urea Nitrogen 29 mg/dL (8-23); Calcium 7.8 mg/dL (8.6-10.3); Carbon Dioxide 21 mEq/L (23-29); Chloride 108 mEq/L (98-107); Glucose 287 mg/dL (70-105); Osmolality,Calculated 296 (280-300); Potassium 4.7 mEq/L (3.5-5.1); Sodium 135 mEq/L (136-145); eGFR For African Americans > 60 (> 60); eGFR For Non-African Americans > 60 (> 60)
[2022-03-09] MEDS: Pantoprazole 40 MG VIAL IVP SCH (08:25)
[2022-03-09] MEDS: *HR* Heparin 5,000 UNIT/ML VIAL IVP PRN (08:26)
[2022-03-09] MEDS: *HR* HYDROcodone/Acet 5/325 mg TABLET PO PRN (08:28)
[2022-03-09] MEDS: Aspirin 81 MG TAB.CHEW PO SCH (08:28)
[2022-03-09] MEDS: rOPINIRole 1 MG TABLET PO SCH ×2 (08:29→20:34)
[2022-03-09] MEDS: Insulin LISPRO 300 UNITS/3 ML VIAL SUBQ SCH ×7 (08:39→20:40)
[2022-03-09] MEDS ORDERED: predniSONE 20 MG TABLET PO ONE (17:00)
[2022-03-09] MEDS: Heparin 25,000UNIT/250ML 1/2NS 25,000 UNIT/250 ML IV.SOLN IVC SCH (17:56)
[2022-03-09] MEDS: carvediloL 25 MG TABLET PO SCH (17:57)
[2022-03-09] MEDS: amLODIPine 5 MG TABLET PO SCH (17:57)
[2022-03-09] MEDS ORDERED: Warfarin perPT PO PRN (18:00)
[2022-03-09] MEDS ORDERED: *HR* Warfarin 5 MG TABLET PO ONE (18:00)
[2022-03-09] MEDS: Insulin DETEMIR 100 UNIT/ML X5UNITS SUBQ SCH (20:34)
[2022-03-10 03:37] LABS: Hematocrit 36.7 % (35.3-44.9); Hemoglobin 11.8 g/dL (11.5-15.4); Mean Corpuscular HGB Conc 32.2 g/dL (31.6-35.5); Mean Corpuscular Hemoglobin 29.7 pg (28.0-33.3); Mean Corpuscular Volume 92.4 fL (83.0-100.0); Mean Platelet Volume 10.9 fL (9.4-12.4); Platelet Count 167 K/mcL (140-400); Red Blood Count 3.97 M/mcL (3.82-4.97); Red Cell Distribution Width 13.8 % (11.5-14.5); White Blood Count 8.4 K/mcL (4.3-11.1)
[2022-03-10 03:42] LABS: INR 1.1; Prothrombin Time 12.4 Seconds (9.4-12.1)
[2022-03-10 03:55] LABS: BUN/Creatinine Ratio 43 (6-26); Blood Urea Nitrogen 29 mg/dL (8-23); Carbon Dioxide 22 mEq/L (23-29); Chloride 106 mEq/L (98-107); Glucose 249 mg/dL (70-105); Osmolality,Calculated 292 (280-300); Potassium 4.4 mEq/L (3.5-5.1); Sodium 134 mEq/L (136-145); eGFR For African Americans > 60 (> 60); eGFR For Non-African Americans > 60 (> 60)
[2022-03-10 04:15] LABS: Heparin anti-factor XA UFH 0.91 IU/mL (0.30-0.70)
[2022-03-10] MEDS ORDERED: predniSONE 20 MG TABLET PO ONE (08:00)
[2022-03-10] MEDS: amLODIPine 5 MG TABLET PO SCH (08:14)
[2022-03-10] MEDS: Aspirin 81 MG TAB.CHEW PO SCH (08:14)
[2022-03-10] MEDS: Pantoprazole 40 MG VIAL IVP SCH (08:15)
[2022-03-10] MEDS: carvediloL 25 MG TABLET PO SCH ×2 (08:15→17:01)
[2022-03-10] MEDS: Insulin LISPRO 300 UNITS/3 ML VIAL SUBQ SCH ×7 (08:16→20:53)
[2022-03-10] MEDS: rOPINIRole 1 MG TABLET PO SCH ×2 (08:23→20:52)
[2022-03-10] MEDS ORDERED: Iopamidol - 370 200 ML INFUS..BTL ONE (12:21)
[2022-03-10] MEDS ORDERED: Heparin 1,000 UNITS/500 mL 500 ML ONE (12:21)
[2022-03-10] MEDS ORDERED: *HR* Heparin 10,000 UNIT/10 ML VIAL ONE (12:21)
[2022-03-10] MEDS ORDERED: Nitroglycerin 1,000 MCG/5 ML VIAL IV ONE (12:21)
[2022-03-10] MEDS ORDERED: 0.9 % Sodium Chloride 2,000 ML ONE (12:21)
[2022-03-10] MEDS ORDERED: *HR* FentaNYL (PF) 100 MCG/2 ML VIAL ONE (12:34)
[2022-03-10] MEDS ORDERED: *HR* Midazolam HCl 2 MG/2 ML VIAL ONE (12:34)
[2022-03-10] MEDS ORDERED: methylPREDNISolone 125 MG/2 ML VIAL ONE (12:34)
[2022-03-10] MEDS ORDERED: amLODIPine 5 MG TABLET PO ONE (15:15)
[2022-03-10] MEDS: Isosorbide MONOnitrate (24 HR) 30 MG TAB.ER.24H PO SCH (17:01)
[2022-03-10] MEDS ORDERED: *HR* Warfarin 5 MG TABLET PO ONE (18:00)
[2022-03-10] MEDS: Insulin DETEMIR 100 UNIT/ML X5UNITS SUBQ SCH (20:56)
[2022-03-11] MEDS: Ondansetron ODT 4 MG TAB.RAPDIS SL PRN (01:03)
[2022-03-11 05:00] LABS: Hematocrit 34.3 % (35.3-44.9); Hemoglobin 11.1 g/dL (11.5-15.4); Mean Corpuscular HGB Conc 32.4 g/dL (31.6-35.5); Mean Corpuscular Hemoglobin 29.8 pg (28.0-33.3); Mean Platelet Volume 10.7 fL (9.4-12.4); Platelet Count 190 K/mcL (140-400); Red Blood Count 3.73 M/mcL (3.82-4.97); White Blood Count 10.8 K/mcL (4.3-11.1)
[2022-03-11 05:09] LABS: INR 2.5; Prothrombin Time 27.3 Seconds (9.4-12.1)
[2022-03-11 05:18] LABS: BUN/Creatinine Ratio 57 (6-26); Blood Urea Nitrogen 33 mg/dL (8-23); Calcium 7.6 mg/dL (8.6-10.3); Carbon Dioxide 22 mEq/L (23-29); Chloride 106 mEq/L (98-107); Glucose 262 mg/dL (70-105); Osmolality,Calculated 296 (280-300); Potassium 4.5 mEq/L (3.5-5.1); Sodium 135 mEq/L (136-145)
[2022-03-11] MEDS: Insulin LISPRO 300 UNITS/3 ML VIAL SUBQ SCH ×7 (09:04→20:42)
[2022-03-11] MEDS: Isosorbide MONOnitrate (24 HR) 30 MG TAB.ER.24H PO SCH (09:05)
[2022-03-11] MEDS: Pantoprazole 40 MG VIAL IVP SCH (09:05)
[2022-03-11] MEDS: carvediloL 25 MG TABLET PO SCH ×2 (09:05→16:53)
[2022-03-11] MEDS: amLODIPine 5 MG TABLET PO SCH (09:06)
[2022-03-11] MEDS: Aspirin 81 MG TAB.CHEW PO SCH (09:06)
[2022-03-11] MEDS: rOPINIRole 1 MG TABLET PO SCH ×2 (09:15→20:41)
[2022-03-11 09:42] LABS: INR 3.4; Prothrombin Time 37.5 Seconds (9.4-12.1)
[2022-03-11] MEDS ORDERED: *HR* Phytonadione 5 MG TABLET PO ONE (10:07)
[2022-03-11] MEDS: Acetaminophen 325 MG TABLET PO PRN (20:40)
[2022-03-11] MEDS: Insulin DETEMIR 100 UNIT/ML X5UNITS SUBQ SCH (20:41)
[2022-03-12 01:58] LABS: INR 1.8; Prothrombin Time 19.9 Seconds (9.4-12.1)
[2022-03-12] MEDS: Ondansetron ODT 4 MG TAB.RAPDIS SL PRN (05:26)
[2022-03-12 07:23] VITALS: O2SAT 99
[2022-03-12] MEDS: Insulin LISPRO 300 UNITS/3 ML VIAL SUBQ SCH ×2 (08:22→08:23)
[2022-03-12] MEDS: amLODIPine 5 MG TABLET PO SCH (08:25)
[2022-03-12] MEDS: carvediloL 25 MG TABLET PO SCH (08:25)
[2022-03-12] MEDS: Isosorbide MONOnitrate (24 HR) 30 MG TAB.ER.24H PO SCH (08:25)
[2022-03-12] MEDS: rOPINIRole 1 MG TABLET PO SCH (08:25)
[2022-03-12] MEDS: Pantoprazole 40 MG VIAL IVP SCH (08:25)
[2022-03-12 10:52] VITALS: PULSE 72; TEMP 98.2
[2022-03-12 11:28] VITALS: BP 159/61
[2022-03-12] MEDS ORDERED: *HR* Warfarin 2 MG TABLET PO ONE (18:00)
== END 2022-03-12 14:00 | disposition home or self-care (01) | DRG 281 ==
LOC: 2NNU → SUATTDRO 17:24
PROVIDERS: ADMIT Internal Medicine; ATTEND Internal Medicine

== ENCOUNTER 2022-03-13 19:38 | Inpatient (IN) ==
[2022-03-13 21:05] LABS: Basophils % 0.4 %; Eosinophils # 0.2 K/mcL (0.0-0.6); Hematocrit 43.1 % (35.3-44.9); Immature Granulocytes % 2.1 % (0-4); Lymphocytes # 1.6 K/mcL (0.6-4.6); Lymphocytes % 17.3 %; Mean Corpuscular HGB Conc 32.5 g/dL (31.6-35.5); Mean Corpuscular Hemoglobin 29.2 pg (28.0-33.3); Mean Corpuscular Volume 89.8 fL (83.0-100.0); Mean Platelet Volume 10.2 fL (9.4-12.4); Monocytes # 0.8 K/mcL (0.0-1.3); Monocytes % 8.6 %; Neutrophils # 6.5 K/mcL (1.6-8.9); Platelet Count 227 K/mcL (140-400); Red Cell Distribution Width 14.1 % (11.5-14.5); Segmented Neutrophils % 69.6 %; White Blood Count 9.4 K/mcL (4.3-11.1)
[2022-03-13] MEDS ORDERED: *HR* Heparin 5,000 UNIT/ML VIAL IVP PRN ×2 (21:07)
[2022-03-13] MEDS ORDERED: *HR* Heparin 5,000 UNIT/ML VIAL IVP ONE (21:07)
[2022-03-13 21:14] LABS: INR 1.5; Prothrombin Time 16.6 Seconds (9.4-12.1)
[2022-03-13] MEDS ORDERED: DilTIAZem 50 MG/50 ML IV.SOLN IVC SCH (21:15)
[2022-03-13 21:17] LABS: Activated Partial Thrombo Time 33.4 Seconds (26.0-36.0)
[2022-03-13 21:26] LABS: Calcium 8.9 mg/dL (8.6-10.3)
[2022-03-13 21:29] LABS: Troponin I 0.35 ng/mL (< 0.04)
[2022-03-13 21:43] LABS: Thyroid Stimulating Hormone 6.269 mcIU/mL (0.340-5.600)
[2022-03-13] MEDS: Heparin 25,000UNIT/250ML 1/2NS 25,000 UNIT/250 ML IV.SOLN IVC SCH (21:59)
[2022-03-13] MEDS ORDERED: rOPINIRole 1 MG TABLET PO SCH (22:30)
[2022-03-13] MEDS ORDERED: Naloxone 0.4 MG/ML INJ IVP PRN (23:25)
[2022-03-13] MEDS ORDERED: Ondansetron ODT 4 MG TAB.RAPDIS SL PRN (23:25)
[2022-03-13] MEDS ORDERED: Melatonin 3 MG TABLET PO PRN (23:25)
[2022-03-13] MEDS ORDERED: *HR* Dextrose 50 % in Water (Syg) 50 ML SYRINGE IVP PRN (23:38)
[2022-03-13] MEDS ORDERED: D5% in Water 1,000 ML IVC PRN (23:38)
[2022-03-13] MEDS ORDERED: Dextrose Gel 15 GM/37.5 ML TUBE PO PRN ×2 (23:38)
[2022-03-14] MEDS ORDERED: *HR* Metoprolol 5 MG/5 ML VIAL IVP ONE (07:32)
[2022-03-14 08:59] LABS: Hematocrit 42.3 % (35.3-44.9); Hemoglobin 13.8 g/dL (11.5-15.4); Mean Corpuscular HGB Conc 32.6 g/dL (31.6-35.5); Mean Corpuscular Hemoglobin 29.3 pg (28.0-33.3); Mean Corpuscular Volume 89.8 fL (83.0-100.0); Mean Platelet Volume 10.3 fL (9.4-12.4); Platelet Count 180 K/mcL (140-400); Red Blood Count 4.71 M/mcL (3.82-4.97); Red Cell Distribution Width 14.1 % (11.5-14.5); White Blood Count 9.4 K/mcL (4.3-11.1)
[2022-03-14] MEDS ORDERED: Aspirin 81 MG TAB.CHEW PO SCH (09:00)
[2022-03-14] MEDS ORDERED: rOPINIRole 1 MG TABLET PO SCH (09:00)
[2022-03-14] MEDS ORDERED: DilTIAZem CD (24hr) 180 MG CAP.ER.24H PO SCH (09:00)
[2022-03-14 09:11] LABS: Heparin anti-factor XA UFH 0.74 IU/mL (0.30-0.70)
[2022-03-14] MEDS: Insulin DETEMIR 100 UNIT/ML X5UNITS SUBQ SCH ×2 (09:33→22:36)
[2022-03-14] MEDS: carvediloL 25 MG TABLET PO SCH ×2 (09:33→18:26)
[2022-03-14] MEDS: Furosemide 20 MG TABLET PO SCH (09:33)
[2022-03-14] MEDS: Insulin LISPRO 300 UNITS/3 ML VIAL SUBQ SCH ×4 (09:40→22:42)
[2022-03-14 10:00] LABS: Influenza A PCR Negative (Negative); Influenza B PCR Negative (Negative); Resp. Syncytial Virus PCR Negative (Negative)
[2022-03-14 10:03] LABS: Alanine Aminotransferase 26 Units/L (7-52); Albumin 3.7 g/dL (3.5-5.7); Albumin/Globulin Ratio 1.3 (1.1-2.2); Alkaline Phosphatase 80 Units/L (34-104); Aspartate Amino Transferase 9 Units/L (13-39); BUN/Creatinine Ratio 48 (6-26); Blood Urea Nitrogen 22 mg/dL (8-23); Calcium 8.3 mg/dL (8.6-10.3); Carbon Dioxide 21 mEq/L (23-29); Chloride 103 mEq/L (98-107); Globulin 2.8 g/dL (2.4-3.5); Glucose 186 mg/dL (70-105); Osmolality,Calculated 286 (280-300); Phosphorous 2.4 mg/dL (2.7-4.5); Potassium 3.8 mEq/L (3.5-5.1); Sodium 134 mEq/L (136-145); Total Protein 6.5 g/dL (6.4-8.9)
[2022-03-14 10:04] LABS: SARS-CoV-2 by PCR (In House) Negative (Negative)
[2022-03-14] MEDS: rOPINIRole 1 MG TABLET PO SCH ×3 (13:14→22:34)
[2022-03-14 14:22] LABS: INR 1.9; Prothrombin Time 20.8 Seconds (9.4-12.1)
[2022-03-14] MEDS ORDERED: *HR* Warfarin 2 MG TABLET PO ONE (18:00)
[2022-03-14] MEDS ORDERED: Warfarin perPT PO PRN (18:00)
[2022-03-15 02:20] LABS: Hematocrit 41.3 % (35.3-44.9); Hemoglobin 13.6 g/dL (11.5-15.4); Mean Corpuscular HGB Conc 32.9 g/dL (31.6-35.5); Mean Corpuscular Hemoglobin 29.3 pg (28.0-33.3); Mean Platelet Volume 10.2 fL (9.4-12.4); Platelet Count 186 K/mcL (140-400); Red Blood Count 4.64 M/mcL (3.82-4.97); White Blood Count 9.4 K/mcL (4.3-11.1)
[2022-03-15 02:37] LABS: INR 2.3; Prothrombin Time 25.4 Seconds (9.4-12.1)
[2022-03-15 02:47] LABS: BUN/Creatinine Ratio 47 (6-26); Blood Urea Nitrogen 27 mg/dL (8-23); Calcium 8.6 mg/dL (8.6-10.3); Carbon Dioxide 22 mEq/L (23-29); Chloride 102 mEq/L (98-107); Glucose 269 mg/dL (70-105); Osmolality,Calculated 289 (280-300); Sodium 132 mEq/L (136-145)
[2022-03-15] MEDS: Heparin 25,000UNIT/250ML 1/2NS 25,000 UNIT/250 ML IV.SOLN IVC SCH ×2 (02:53→02:56)
[2022-03-15] MEDS ORDERED: DilTIAZem CD (24hr) 240 MG CAP.ER.24H PO SCH (09:00)
[2022-03-15] MEDS: carvediloL 25 MG TABLET PO SCH ×2 (09:13→17:09)
[2022-03-15] MEDS: rOPINIRole 1 MG TABLET PO SCH ×2 (09:13→22:15)
[2022-03-15] MEDS: Furosemide 20 MG TABLET PO SCH (09:13)
[2022-03-15] MEDS: Insulin DETEMIR 100 UNIT/ML X5UNITS SUBQ SCH ×2 (09:14→22:16)
[2022-03-15] MEDS: Insulin LISPRO 300 UNITS/3 ML VIAL SUBQ SCH ×4 (09:15→22:16)
[2022-03-15] MEDS: DilTIAZem CD (24hr) 240 MG CAP.ER.24H PO SCH (11:45)
[2022-03-15] MEDS ORDERED: *HR* Warfarin 1 MG TABLET PO ONE (18:00)
[2022-03-16 03:01] LABS: INR 2.5; Prothrombin Time 28.1 Seconds (9.4-12.1)
[2022-03-16 06:52] VITALS: BP 149/75; PULSE 91; TEMP 97; O2SAT 97
[2022-03-16] MEDS: Furosemide 20 MG TABLET PO SCH (08:49)
[2022-03-16] MEDS: DilTIAZem CD (24hr) 240 MG CAP.ER.24H PO SCH (08:50)
[2022-03-16] MEDS: carvediloL 25 MG TABLET PO SCH (08:50)
[2022-03-16] MEDS: Insulin LISPRO 300 UNITS/3 ML VIAL SUBQ SCH (08:51)
[2022-03-16] MEDS: rOPINIRole 1 MG TABLET PO SCH (08:52)
[2022-03-16] MEDS: Insulin DETEMIR 100 UNIT/ML X5UNITS SUBQ SCH (08:56)
[2022-03-16] MEDS ORDERED: *HR* Warfarin 1 MG TABLET PO ONE (18:00)
== END 2022-03-16 10:15 | disposition home or self-care (01) | DRG 309 ==
LOC: 3NENU 19:38 → EMEROOARM 19:38 → SUATTDRO 23:30 → 3NENU 03-14 00:24
PROVIDERS: ADMIT Internal Medicine; ATTEND Student in an Organized Health Care Education/Training Program

== ENCOUNTER 2022-04-03 10:59 | Inpatient (IN) ==
[2022-04-03 11:45] LABS: Basophils # 0.1 K/mcL (0.0-0.2); Basophils % 0.7 %; Eosinophils # 0.1 K/mcL (0.0-0.6); Hematocrit 38.4 % (35.3-44.9); Hemoglobin 12.1 g/dL (11.5-15.4); Immature Granulocytes % 2.5 % (0-4); Lymphocytes # 2.1 K/mcL (0.6-4.6); Lymphocytes % 31.8 %; Mean Corpuscular HGB Conc 31.5 g/dL (31.6-35.5); Mean Corpuscular Hemoglobin 29.1 pg (28.0-33.3); Mean Corpuscular Volume 92.3 fL (83.0-100.0); Mean Platelet Volume 10.1 fL (9.4-12.4); Monocytes # 0.6 K/mcL (0.0-1.3); Monocytes % 8.6 %; Neutrophils # 3.7 K/mcL (1.6-8.9); Platelet Count 223 K/mcL (140-400); Red Blood Count 4.16 M/mcL (3.82-4.97); Red Cell Distribution Width 15.9 % (11.5-14.5); Segmented Neutrophils % 55.4 %; White Blood Count 6.7 K/mcL (4.3-11.1)
[2022-04-03 12:03] LABS: BUN/Creatinine Ratio 36 (6-26); Blood Urea Nitrogen 27 mg/dL (8-23); Calcium 8.7 mg/dL (8.6-10.3); Carbon Dioxide 24 mEq/L (23-29); Chloride 108 mEq/L (98-107); Glucose 153 mg/dL (70-105); Osmolality,Calculated 300 (280-300); Potassium 3.7 mEq/L (3.5-5.1); Sodium 141 mEq/L (136-145); Troponin I < 0.03 ng/mL (< 0.04)
[2022-04-03 12:19] LABS: INR 2.3; Prothrombin Time 25.7 Seconds (9.4-12.1)
[2022-04-03 12:21] LABS: Activated Partial Thrombo Time 42.3 Seconds (26.0-36.0)
[2022-04-03 12:22] LABS: Magnesium 1.6 mg/dL (1.6-2.6)
[2022-04-03 12:41] LABS: Thyroid Stimulating Hormone 2.014 mcIU/mL (0.340-5.600)
[2022-04-03] MEDS ORDERED: rOPINIRole 1 MG TABLET PO STA (13:08)
[2022-04-03] MEDS ORDERED: Furosemide 40 MG/4 ML VIAL IVP ONE (14:10)
[2022-04-03] MEDS ORDERED: Naloxone 0.4 MG/ML INJ IVP PRN (15:16)
[2022-04-03] MEDS ORDERED: Acetaminophen 325 MG TABLET PO PRN (15:16)
[2022-04-03] MEDS ORDERED: Melatonin 3 MG TABLET PO PRN (15:16)
[2022-04-03] MEDS ORDERED: D5% in Water 1,000 ML IVC PRN (15:36)
[2022-04-03] MEDS ORDERED: *HR* Dextrose 50 % in Water (Syg) 50 ML SYRINGE IVP PRN (15:36)
[2022-04-03] MEDS ORDERED: Dextrose Gel 15 GM/37.5 ML TUBE PO PRN ×2 (15:36)
[2022-04-03] MEDS: carvediloL 25 MG TABLET PO SCH (16:32)
[2022-04-03] MEDS: DilTIAZem CD (24hr) 120 MG CAP.ER.24H PO SCH (16:32)
[2022-04-03] MEDS: Insulin LISPRO 300 UNITS/3 ML VIAL SUBQ SCH ×2 (16:46→22:37)
[2022-04-03] MEDS: DilTIAZem 50 MG/50 ML IV.SOLN IVC SCH (22:36)
[2022-04-03] MEDS: Furosemide 40 MG/4 ML VIAL IVP SCH (22:37)
[2022-04-03] MEDS: Insulin DETEMIR 100 UNIT/ML X5UNITS SUBQ SCH (22:38)
[2022-04-03] MEDS: rOPINIRole 1 MG TABLET PO SCH (22:38)
[2022-04-04] MEDS: DilTIAZem 50 MG/50 ML IV.SOLN IVC SCH ×2 (01:10→08:10)
[2022-04-04 02:06] LABS: Basophils # 0.1 K/mcL (0.0-0.2); Basophils % 0.9 %; Eosinophils # 0.1 K/mcL (0.0-0.6); Eosinophils % 1.2 %; Hematocrit 33.4 % (35.3-44.9); Hemoglobin 10.7 g/dL (11.5-15.4); Immature Granulocytes % 2.6 % (0-4); Lymphocytes # 2.2 K/mcL (0.6-4.6); Lymphocytes % 37.6 %; Mean Corpuscular Hemoglobin 29.1 pg (28.0-33.3); Mean Corpuscular Volume 90.8 fL (83.0-100.0); Mean Platelet Volume 10.2 fL (9.4-12.4); Monocytes # 0.5 K/mcL (0.0-1.3); Monocytes % 8.4 %; Neutrophils # 2.8 K/mcL (1.6-8.9); Platelet Count 199 K/mcL (140-400); Red Blood Count 3.68 M/mcL (3.82-4.97); Red Cell Distribution Width 15.9 % (11.5-14.5); Segmented Neutrophils % 49.3 %; White Blood Count 5.7 K/mcL (4.3-11.1)
[2022-04-04 03:04] LABS: Estimated Average Glucose 232 mg/dl; Hemoglobin A1C 9.7 %
[2022-04-04 03:18] LABS: BUN/Creatinine Ratio 39 (6-26); Blood Urea Nitrogen 26 mg/dL (8-23); Calcium 8.2 mg/dL (8.6-10.3); Carbon Dioxide 24 mEq/L (23-29); Chloride 107 mEq/L (98-107); Glucose 152 mg/dL (70-105); Magnesium 1.5 mg/dL (1.6-2.6); Osmolality,Calculated 298 (280-300); Potassium 3.4 mEq/L (3.5-5.1); Sodium 140 mEq/L (136-145)
[2022-04-04] MEDS: Insulin LISPRO 300 UNITS/3 ML VIAL SUBQ SCH ×4 (07:18→20:42)
[2022-04-04] MEDS ORDERED: Potassium Effervescent 25 MEQ TABLET.EFF PO ONE (07:55)
[2022-04-04] MEDS: carvediloL 25 MG TABLET PO SCH ×2 (08:10→17:22)
[2022-04-04] MEDS: rOPINIRole 1 MG TABLET PO SCH ×2 (08:10→20:37)
[2022-04-04] MEDS: Furosemide 40 MG/4 ML VIAL IVP SCH ×2 (08:10→20:37)
[2022-04-04] MEDS: DilTIAZem CD (24hr) 120 MG CAP.ER.24H PO SCH (08:10)
[2022-04-04] MEDS: Insulin DETEMIR 100 UNIT/ML X5UNITS SUBQ SCH ×2 (08:10→20:41)
[2022-04-04] MEDS: Isosorbide MONOnitrate (24 HR) 30 MG TAB.ER.24H PO SCH (08:10)
[2022-04-04] MEDS: Ondansetron 4 MG/2 ML VIAL IVP PRN (11:30)
[2022-04-05 06:30] LABS: Basophils % 0.6 %; Eosinophils # 0.1 K/mcL (0.0-0.6); Eosinophils % 1.7 %; Hematocrit 32.1 % (35.3-44.9); Hemoglobin 10.3 g/dL (11.5-15.4); Immature Granulocytes % 2.3 % (0-4); Lymphocytes # 1.9 K/mcL (0.6-4.6); Lymphocytes % 36.8 %; Mean Corpuscular HGB Conc 32.1 g/dL (31.6-35.5); Mean Corpuscular Hemoglobin 29.3 pg (28.0-33.3); Mean Corpuscular Volume 91.2 fL (83.0-100.0); Mean Platelet Volume 10.2 fL (9.4-12.4); Monocytes # 0.4 K/mcL (0.0-1.3); Monocytes % 7.7 %; Neutrophils # 2.7 K/mcL (1.6-8.9); Platelet Count 190 K/mcL (140-400); Red Blood Count 3.52 M/mcL (3.82-4.97); Red Cell Distribution Width 16.1 % (11.5-14.5); Segmented Neutrophils % 50.9 %; White Blood Count 5.2 K/mcL (4.3-11.1)
[2022-04-05 07:09] LABS: Calcium 8.3 mg/dL (8.6-10.3); Magnesium 1.9 mg/dL (1.6-2.6); Potassium 4.4 mEq/L (3.5-5.1)
[2022-04-05] MEDS: Furosemide 40 MG/4 ML VIAL IVP SCH ×2 (08:44→21:36)
[2022-04-05] MEDS: Insulin DETEMIR 100 UNIT/ML X5UNITS SUBQ SCH ×2 (08:45→21:37)
[2022-04-05] MEDS: DilTIAZem CD (24hr) 120 MG CAP.ER.24H PO SCH (08:45)
[2022-04-05] MEDS: carvediloL 25 MG TABLET PO SCH ×2 (08:45→16:50)
[2022-04-05] MEDS: rOPINIRole 1 MG TABLET PO SCH ×2 (08:45→21:34)
[2022-04-05] MEDS: Isosorbide MONOnitrate (24 HR) 30 MG TAB.ER.24H PO SCH (08:45)
[2022-04-05] MEDS: Insulin LISPRO 300 UNITS/3 ML VIAL SUBQ SCH ×4 (08:46→21:37)
[2022-04-05] MEDS ORDERED: DilTIAZem CD (24hr) 120 MG CAP.ER.24H PO SCH ×2 (12:15→12:30)
[2022-04-06 01:41] LABS: Calcium 8.5 mg/dL (8.6-10.3); Potassium 4.2 mEq/L (3.5-5.1)
[2022-04-06] MEDS: Insulin LISPRO 300 UNITS/3 ML VIAL SUBQ SCH ×4 (08:25→20:01)
[2022-04-06] MEDS: Insulin DETEMIR 100 UNIT/ML X5UNITS SUBQ SCH ×2 (08:26→20:01)
[2022-04-06] MEDS: rOPINIRole 1 MG TABLET PO SCH ×2 (08:27→19:58)
[2022-04-06] MEDS: Isosorbide MONOnitrate (24 HR) 30 MG TAB.ER.24H PO SCH (08:27)
[2022-04-06] MEDS: DilTIAZem CD (24hr) 180 MG CAP.ER.24H PO SCH (08:28)
[2022-04-06] MEDS: carvediloL 25 MG TABLET PO SCH ×2 (08:28→19:10)
[2022-04-06] MEDS: Furosemide 40 MG/4 ML VIAL IVP SCH ×2 (08:29→19:59)
[2022-04-06] MEDS ORDERED: DilTIAZem CD (24hr) 240 MG CAP.ER.24H PO SCH (09:00)
[2022-04-06] MEDS ORDERED: Amiodarone Premix 360 MG/200 ML BAG IVC ONE ×2 (15:01→22:18)
[2022-04-06] MEDS ORDERED: Amiodarone Premix 150 MG/100 ML BAG IVPB ONE ×3 (15:01→21:47)
[2022-04-06] MEDS ORDERED: Amiodarone Premix 360 MG/200 ML BAG IVC SCH ×2 (15:15→22:00)
[2022-04-06 15:16] LABS: INR 1.3; Prothrombin Time 14.6 Seconds (9.4-12.1)
[2022-04-07 02:15] LABS: Basophils # 0.1 K/mcL (0.0-0.2); Basophils % 0.8 %; Eosinophils # 0.1 K/mcL (0.0-0.6); Hematocrit 34.1 % (35.3-44.9); Hemoglobin 11.1 g/dL (11.5-15.4); Immature Granulocytes % 2.2 % (0-4); Lymphocytes # 2.4 K/mcL (0.6-4.6); Lymphocytes % 33.3 %; Mean Corpuscular HGB Conc 32.6 g/dL (31.6-35.5); Mean Corpuscular Volume 92.2 fL (83.0-100.0); Mean Platelet Volume 10.4 fL (9.4-12.4); Monocytes # 0.5 K/mcL (0.0-1.3); Monocytes % 6.6 %; Platelet Count 194 K/mcL (140-400); Red Cell Distribution Width 16.9 % (11.5-14.5); Segmented Neutrophils % 56.1 %; White Blood Count 7.1 K/mcL (4.3-11.1)
[2022-04-07 02:27] LABS: Magnesium 2.1 mg/dL (1.6-2.6); Potassium 4.5 mEq/L (3.5-5.1)
[2022-04-07] MEDS: Ondansetron 4 MG/2 ML VIAL IVP PRN (03:20)
[2022-04-07] MEDS: Amiodarone Premix 360 MG/200 ML BAG IVC SCH ×2 (03:56→17:33)
[2022-04-07] MEDS ORDERED: *HR* Heparin 5,000 UNIT/ML VIAL IVP PRN ×2 (05:18)
[2022-04-07] MEDS ORDERED: *HR* Heparin 5,000 UNIT/ML VIAL IVP ONE (05:18)
[2022-04-07 06:07] LABS: Heparin anti-factor XA UFH 0.07 IU/mL (0.30-0.70); INR 1.1; Prothrombin Time 12.7 Seconds (9.4-12.1)
[2022-04-07] MEDS: Heparin 25,000UNIT/250ML 1/2NS 25,000 UNIT/250 ML IV.SOLN IVC SCH (06:29)
[2022-04-07] MEDS: Furosemide 40 MG/4 ML VIAL IVP SCH ×2 (08:20→20:38)
[2022-04-07] MEDS: Insulin LISPRO 300 UNITS/3 ML VIAL SUBQ SCH ×4 (08:23→20:38)
[2022-04-07] MEDS: carvediloL 25 MG TABLET PO SCH ×2 (08:24→16:01)
[2022-04-07] MEDS: Isosorbide MONOnitrate (24 HR) 30 MG TAB.ER.24H PO SCH (08:24)
[2022-04-07] MEDS: DilTIAZem CD (24hr) 180 MG CAP.ER.24H PO SCH (08:24)
[2022-04-07] MEDS: Insulin DETEMIR 100 UNIT/ML X5UNITS SUBQ SCH ×2 (08:56→20:59)
[2022-04-07] MEDS: rOPINIRole 1 MG TABLET PO SCH ×3 (08:56→20:59)
[2022-04-07 09:06] LABS: Hematocrit 34.4 % (35.3-44.9); Hemoglobin 11.5 g/dL (11.5-15.4); Mean Corpuscular HGB Conc 33.4 g/dL (31.6-35.5); Mean Corpuscular Hemoglobin 30.5 pg (28.0-33.3); Mean Corpuscular Volume 91.2 fL (83.0-100.0); Mean Platelet Volume 10.3 fL (9.4-12.4); Platelet Count 186 K/mcL (140-400); Red Blood Count 3.77 M/mcL (3.82-4.97); Red Cell Distribution Width 16.9 % (11.5-14.5); White Blood Count 7.5 K/mcL (4.3-11.1)
[2022-04-07] MEDS ORDERED: *HR* Warfarin 4 MG TABLET PO ONE (18:00)
[2022-04-07] MEDS ORDERED: Warfarin perPT PO PRN (18:00)
[2022-04-08 02:12] LABS: INR 1.2; Prothrombin Time 12.9 Seconds (9.4-12.1)
[2022-04-08] MEDS: Amiodarone Premix 360 MG/200 ML BAG IVC SCH ×2 (05:48→21:01)
[2022-04-08] MEDS: Heparin 25,000UNIT/250ML 1/2NS 25,000 UNIT/250 ML IV.SOLN IVC SCH (05:48)
[2022-04-08] MEDS: Furosemide 40 MG/4 ML VIAL IVP SCH ×2 (07:51→20:07)
[2022-04-08] MEDS: Isosorbide MONOnitrate (24 HR) 30 MG TAB.ER.24H PO SCH (07:51)
[2022-04-08] MEDS: carvediloL 25 MG TABLET PO SCH ×2 (07:52→17:32)
[2022-04-08] MEDS: Insulin LISPRO 300 UNITS/3 ML VIAL SUBQ SCH ×4 (07:52→20:06)
[2022-04-08] MEDS: DilTIAZem CD (24hr) 180 MG CAP.ER.24H PO SCH (07:52)
[2022-04-08] MEDS: Insulin DETEMIR 100 UNIT/ML X5UNITS SUBQ SCH ×2 (07:59→20:06)
[2022-04-08 08:47] LABS: Calcium 8.8 mg/dL (8.6-10.3); Potassium 4.2 mEq/L (3.5-5.1)
[2022-04-08] MEDS: rOPINIRole 1 MG TABLET PO SCH ×2 (12:13→20:07)
[2022-04-08] MEDS: *HR* Amiodarone 200 MG TABLET PO SCH ×2 (15:02→20:07)
[2022-04-08] MEDS ORDERED: *HR* Warfarin 4 MG TABLET PO ONE (18:00)
[2022-04-09 03:27] LABS: Heparin anti-factor XA UFH 0.46 IU/mL (0.30-0.70)
[2022-04-09 03:31] LABS: INR 1.4; Prothrombin Time 15.8 Seconds (9.4-12.1)
[2022-04-09 03:43] LABS: Calcium 8.6 mg/dL (8.6-10.3)
[2022-04-09] MEDS: Isosorbide MONOnitrate (24 HR) 30 MG TAB.ER.24H PO SCH (08:02)
[2022-04-09] MEDS: *HR* Amiodarone 200 MG TABLET PO SCH ×2 (08:02→20:08)
[2022-04-09] MEDS: DilTIAZem CD (24hr) 180 MG CAP.ER.24H PO SCH (08:02)
[2022-04-09] MEDS: carvediloL 25 MG TABLET PO SCH ×2 (08:02→17:29)
[2022-04-09] MEDS: Amiodarone Premix 360 MG/200 ML BAG IVC SCH (08:03)
[2022-04-09] MEDS: Furosemide 40 MG/4 ML VIAL IVP SCH ×2 (08:03→20:09)
[2022-04-09] MEDS: Heparin 25,000UNIT/250ML 1/2NS 25,000 UNIT/250 ML IV.SOLN IVC SCH (09:00)
[2022-04-09] MEDS: Insulin DETEMIR 100 UNIT/ML X5UNITS SUBQ SCH ×2 (09:45→20:09)
[2022-04-09] MEDS: Insulin LISPRO 300 UNITS/3 ML VIAL SUBQ SCH ×4 (10:32→20:10)
[2022-04-09] MEDS ORDERED: Furosemide 40 MG/4 ML VIAL IVP ONE (12:00)
[2022-04-09] MEDS: Ondansetron 4 MG/2 ML VIAL IVP PRN (12:01)
[2022-04-09] MEDS: rOPINIRole 1 MG TABLET PO SCH ×2 (13:26→20:08)
[2022-04-09] MEDS ORDERED: *HR* Warfarin 4 MG TABLET PO ONE (18:00)
[2022-04-10 03:15] LABS: INR 2.2; Prothrombin Time 24.7 Seconds (9.4-12.1)
[2022-04-10] MEDS: Insulin LISPRO 300 UNITS/3 ML VIAL SUBQ SCH ×4 (08:55→20:30)
[2022-04-10] MEDS: Furosemide 40 MG/4 ML VIAL IVP SCH ×2 (09:39→20:30)
[2022-04-10] MEDS: *HR* Amiodarone 200 MG TABLET PO SCH ×2 (09:41→20:29)
[2022-04-10] MEDS: Isosorbide MONOnitrate (24 HR) 30 MG TAB.ER.24H PO SCH (09:41)
[2022-04-10] MEDS: DilTIAZem CD (24hr) 180 MG CAP.ER.24H PO SCH (09:41)
[2022-04-10] MEDS: Insulin DETEMIR 100 UNIT/ML X5UNITS SUBQ SCH ×2 (09:46→20:41)
[2022-04-10] MEDS: carvediloL 25 MG TABLET PO SCH ×2 (10:45→17:42)
[2022-04-10] MEDS: Heparin 25,000UNIT/250ML 1/2NS 25,000 UNIT/250 ML IV.SOLN IVC SCH (11:54)
[2022-04-10] MEDS ORDERED: Lidocaine Viscous Oral Soln 15 ML SOLUTION MM PRN (13:08)
[2022-04-10] MEDS ORDERED: 0.9 % Sodium Chloride 500 ML IVC ONE (13:09)
[2022-04-10] MEDS: *HR* FentaNYL (PF) 100 MCG/2 ML VIAL IVP PRN ×2 (13:55→14:15)
[2022-04-10] MEDS: *HR* Midazolam HCl 5 MG/5 ML VIAL IVP PRN ×2 (13:55→14:15)
[2022-04-10] MEDS: rOPINIRole 1 MG TABLET PO SCH ×2 (14:05→20:29)
[2022-04-10] MEDS ORDERED: *HR* Warfarin 2 MG TABLET PO ONE (18:00)
[2022-04-11 02:29] LABS: Basophils # 0.1 K/mcL (0.0-0.2); Basophils % 0.9 %; Eosinophils # 0.1 K/mcL (0.0-0.6); Eosinophils % 1.4 %; Hematocrit 33.6 % (35.3-44.9); Hemoglobin 10.7 g/dL (11.5-15.4); Immature Granulocytes % 3.5 % (0-4); Lymphocytes % 35.3 %; Mean Corpuscular HGB Conc 31.8 g/dL (31.6-35.5); Mean Corpuscular Hemoglobin 29.7 pg (28.0-33.3); Mean Corpuscular Volume 93.3 fL (83.0-100.0); Mean Platelet Volume 10.3 fL (9.4-12.4); Monocytes # 0.4 K/mcL (0.0-1.3); Monocytes % 7.3 %; Platelet Count 214 K/mcL (140-400); Red Cell Distribution Width 17.7 % (11.5-14.5); Segmented Neutrophils % 51.6 %; White Blood Count 5.7 K/mcL (4.3-11.1)
[2022-04-11 02:35] LABS: INR 2.8
[2022-04-11 02:48] LABS: Albumin 3.8 g/dL (3.5-5.7); Albumin/Globulin Ratio 1.4 (1.1-2.2); Bilirubin,Total 1.2 mg/dL (0.3-1.0); Calcium 8.4 mg/dL (8.6-10.3); Globulin 2.7 g/dL (2.4-3.5); Potassium 4.1 mEq/L (3.5-5.1); Total Protein 6.5 g/dL (6.4-8.9)
[2022-04-11] MEDS: Insulin LISPRO 300 UNITS/3 ML VIAL SUBQ SCH ×2 (09:37→12:05)
[2022-04-11] MEDS: Furosemide 40 MG/4 ML VIAL IVP SCH (09:38)
[2022-04-11] MEDS: DilTIAZem CD (24hr) 180 MG CAP.ER.24H PO SCH (09:39)
[2022-04-11] MEDS: Isosorbide MONOnitrate (24 HR) 30 MG TAB.ER.24H PO SCH (09:39)
[2022-04-11] MEDS: *HR* Amiodarone 200 MG TABLET PO SCH (09:39)
[2022-04-11] MEDS: carvediloL 25 MG TABLET PO SCH (09:40)
[2022-04-11] MEDS: Insulin DETEMIR 100 UNIT/ML X5UNITS SUBQ SCH (09:44)
[2022-04-11 11:57] VITALS: BP 133/66; PULSE 69; TEMP 98.7; O2SAT 95
[2022-04-11] MEDS: rOPINIRole 1 MG TABLET PO SCH (12:05)
[2022-04-11] MEDS ORDERED: *HR* Warfarin 1 MG TABLET PO ONE (18:00)
== END 2022-04-11 12:56 | disposition home or self-care (01) | DRG 291 ==
LOC: EMEROOARM 10:59 → 2ANU 10:59 → SUATTDRO 14:45 → 2ANU 15:29 → SUATTDRO 04-05 15:32 → 2NNU 04-06 22:23
PROVIDERS: ADMIT Internal Medicine; ATTEND Family Medicine